=== PATIENT | female | born 1970 | race Caucasian/White ===

== ENCOUNTER 2018-01-04 23:05 | Emergency (ER) | payer MEDICARE, SELFPAY ==
[2018-01-04 23:18] VITALS: BP 157/103; PULSE 73; RESP 16; TEMP 36.4; O2SAT 99; BMI 25.8
--- NOTE | 2018-01-04 23:24 | ED.DIZZY ---
HPI - Dizziness General Chief Complaint: Dizziness Stated Complaint: DIZZINESS,MIGRAINE Time Seen by Provider: 01/04/18 23:23 Source: patient Mode of arrival: ambulatory Limitations: no limitations History of Present Illness HPI Narrative: 47-year-old female with a history of migraines here for which she describes as 1 of her typical migraines. She states that it is bilateral. Has photophobia. No aura. No fevers. No ringing in her ears. She states she takes Excedrin at home and took that but it did not help her symptoms. She states she has a follow-up appointment with her primary doctor sometime in the near future to discuss headache medications. States she woke up this morning with the symptoms and it does feel like 1 of her typical migraines. Related Data Home Medications Medication Instructions Recorded Confirmed Valacyclovir Hydrochloride 1,000 mg PO PRN #0 09/13/10 (Valtrex) Previous Rx's Medication Instructions Recorded zfstpkzfby-gpmnssiefbtdm-qvzd 1 tab PO Q4HP PRN #10 tab 11/07/17 hjuficcpyl-trmjyoogcetgn-hpne 1 cap PO Q4H PRN #14 cap 01/05/18 [Fioricet] Allergies Allergy/AdvReac Type Severity Reaction Status Date / Time diflunisal [DIFLUNISAL] Allergy Unknown Unverified 12/05/17 11:51 hydrocodone [HYDROCODONE] Allergy Unknown Unverified 12/05/17 11:51 methocarbamol [From ROBAXIN] Allergy Unknown Unverified 12/05/17 11:51 naproxen [From NAPROSYN] Allergy Unknown Unverified 12/05/17 11:51 NSAIDS (Non-Steroidal Allergy Unknown Unverified 12/05/17 11:51 Anti-Inflamma [NSAIDS (NON-STEROIDAL ANTI-INFLAMMA] Review of Systems Constitutional Reports body ache(s), Denies chills, Denies fever(s), Reports headache(s), Denies lethargy, Denies malaise and Denies weakness Eyes Denies change in vision, Denies diplopia, Denies loss of vision and Reports photophobia ENT Ears, Nose, Mouth, and Throat: Denies vertigo, Denies dizziness, Reports headache(s), Denies neck pain, Denies tinnitus and Denies sore throat Cardiovascular Denies chest pain, Denies syncope, Denies irregular heart rhythm, Denies lightheadedness, Denies palpitations, Denies dyspnea, Denies dyspnea on exertion and Denies orthopnea Respiratory Denies cough, Denies dyspnea, Denies dyspnea on exertion and Denies wheezing Gastrointestinal Gastrointestinal: Denies abdominal pain, Denies change in bowel habits, Denies diarrhea, Reports nausea and Denies vomiting Musculoskeletal Denies abnormal gait, Reports myalgias, Reports arthralgias, Denies muscle cramps, Denies muscle weakness and Denies neck pain Integumentary/Breasts Denies pruritus, Denies erythema, Denies rash and Denies wounds Neurologic Denies abnormal gait, Denies vertigo, Denies dizziness, Denies syncope, Reports headache(s), Denies loss of vision and Denies weakness Endocrine Denies palpitations Hematologic/Lymphatic Denies easy bruising Allergic/Immunologic Denies wheezing [facility] Social History Smoking Status: Never smoker Exam Const General: cooperative and well developed Nutritional Appearance: well nourished Orientation: alert, awake, oriented x3 and not confused Eyes General: appearance normal, both eyes and all related structures Eyelids: eyelids normal Conjunctivae: conjunctivae normal Sclera: sclerae normal Pupils: PERRL EOM: EOM intact bilaterally Resp Effort & Inspection: normal respiratory effort, able to speak in complete sentences, no respiratory distress and no use of accessory muscles Auscultation: clear to auscultation bilaterally, no rales, no rhonchi and no wheezes Cardio Rate: regular rate Rhythm: regular rhythm Heart Sounds: no click, no gallops, no murmurs and no rubs Pulses: normal peripheral pulses GI Inspection: non-distended Palpation: soft, no hepatosplenomegaly, No guarding, No pulsatile mass and No tender Auscultation: normal bowel sounds Skin General: no rashes or lesions noted, No jaundice and No petechiae Neuro General: alert, oriented x3, gait normal and no focal motor deficits Speech: speech normal Motor: strength 5/5 throughout Sensory Exam: no sensory deficits noted Extrem General: full ROM, no clubbing, cyanosis or edema, no pedal edema and no calf tenderness MDM - Dizziness MDM Narrative Medical decision making narrative: Patient here in the emergency department with a headache that is consistent with 1 of her typical migraines she was given IV medication here in the emergency department she states that her headache went from a 10/10 to a 7/10. She states that she felt improvement enough in her headache that she would like to go home. Will hold on further workup for now. She does have an appointment at the near future with her primary care doctor to discuss her headaches and medication. She states that she has been told that she should not be taken Excedrin because of her history of gastric bypass however she has been taking this medicine because the headaches. She states she has been on Fioricet in the past and she thinks that has worked for her. Will send her home with a prescription for Fioricet. She was given return precautions. She expressed understanding and agreement with plan Course Orders Ordered: ED Orders 01/04/18 23:27 XR pelvis 1-2V Stat XR wrist LT min 3V Stat Discontinued Medications Diphenhydramine HCl (Benadryl) 25 mg IV NOW ONE Stop: 01/04/18 23:56 Last Admin: 01/05/18 00:05 Dose: 25 mg Sodium Chloride (Normal Saline 0.9%) 1,000 mls @ 1,000 mls/hr IV BOLUS ONE Stop: 01/05/18 00:54 Last Infusion: 01/05/18 01:13 Dose: 1,000 mls/hr Admin: 01/05/18 00:05 Dose: 1,000 mls/hr Metoclopramide HCl (Reglan) 10 mg IV NOW ONE Stop: 01/04/18 23:56 Last Admin: 01/05/18 00:05 Dose: 10 mg Last Vital Signs Temp 97.5 F L 01/04/18 23:18 Pulse 61 01/05/18 01:56 Resp 16 01/05/18 01:56 BP 157/96 H 01/05/18 01:56 Pulse Ox 98 01/05/18 01:56 Discharge Plan Departure Patient Disposition: Home, Self-Care Clinical Impression: Migraine Discharge Date/Time: 01/05/18 01:57 Interventions: ED Discharge Assessment Last Done: 01/05/18 01:56 Instructions: Migraine Headaches (Alternative Therapy), Migraine -- Adult Activity Restrictions/Additional Instructions: Take all the medications as directed. Follow up with your primary care doctor at her scheduled appointment to discuss your headaches and potential medications. Return to the emergency department for any new or worsening symptoms. Prescriptions: New cbbybymseb-tlcrtshvitxtb-tslv [Fioricet] 50-300-40 mg capsule 1 cap PO Q4H PRN (Reason: headache) Qty: 14 RF: 0 No Action Valacyclovir Hydrochloride (Valtrex) 1,000 mg PO PRN Qty: 0 RF: 0 jggolopgiy-vuaoounvsjgog-akee 1 EACH tablet 1 tab PO Q4HP PRNQty: 10 RF: 0
[2018-01-05] MEDS: diphenhydrAMINE 50 MG/ML VIAL 25 MG IV (00:05)
[2018-01-05] MEDS: SODIUM CHLORIDE 0.9% 1,000 ML 1000 ML IV (00:05)
[2018-01-05] MEDS: METOCLOPRAMIDE 10 MG/2 ML INJ IV (00:05)
[2018-01-05 01:56] VITALS: BP 157/96; PULSE 61; RESP 16; O2SAT 98
== END 2018-01-05 01:57 | disposition home or self-care (01) ==
PROVIDERS: Emergency Provider Emergency Medicine; Family Provider Family Medicine; PCP Family Medicine
DX: G43.909 Migraine, unspecified, not intractable, without status migrainosus (principal)
CPT/HCPCS: 36591; 93005; 96361; 96374; 96375; 99283; 99284; J1200; J2765

== ENCOUNTER 2018-07-31 16:33 | Emergency (ER) | payer MEDICARE, SELFPAY ==
[2018-07-31 16:52] VITALS: BP 118/84; PULSE 98; RESP 18; TEMP 37.2; O2SAT 97
--- NOTE | 2018-07-31 17:34 | DI.CT.S_ITS ---
PROCEDURE: CT ABDOMEN PELVIS W CON INDICATIONS: AB PAIN hx gastric bypass TECHNIQUE: After the administration of intravenous contrast, 5 mm thick sections acquired from the diaphragm to the symphysis. 5 mm coronal and sagittal reformats were acquired. For radiation dose reduction, the following was used: automated exposure control, adjustment of mA and/or kV according to patient size. COMPARISON: [facility] Ultrasound, US, US PELVIC+TRANSVAG, 07/03/2016, 10:10. CT, PE STUDY (CTA CHEST), 04/01/2007, 17:16. FINDINGS: Image quality: Excellent. ABDOMEN: Lung bases: Lung bases are clear. Heart size is normal. There is a small hiatal hernia. Solid organs: Liver is normal in size and enhancement. Gallbladder contains a fluid/fluid level likely caused by sludge or small gallstones. Biliary system is dilated. Common bile duct measures up to 14 mm. There is mild intrahepatic biliary dilation. Pancreas appears mildly atrophic. Spleen is normal in size and enhancement. No adrenal nodules. Kidneys demonstrate normal size and enhancement, without hydronephrosis. Peritoneum and bowel: There is gastric bypass appeared Bowel loops demonstrate normal wall thickness and caliber. Appendix is normal. A small amount of free fluid is present. No free air. Nodes and vessels: No retroperitoneal or mesenteric adenopathy by size criteria. Aorta and inferior vena cava are normal in size. Miscellaneous: Small umbilical hernia is noted. PELVIS: Genitourinary: Bladder wall thickness is normal. Myomatous uterus. Ovaries are unremarkable. Miscellaneous: No inguinal hernias or adenopathy. Bones: No suspicious bony lesions. No vertebral body compression fractures. Degenerative changes in lumbar spine. IMPRESSION: 1. Post surgical changes related to gastric bypass. No CT evidence for gastric outlet obstruction or small bowel obstruction. 2. There is gallbladder sludge. Intrahepatic and intrahepatic biliary dilation is present. Please correlate with serum bilirubin for biliary obstruction. 3. Small hiatal hernia. 4. Small fat-containing umbilical hernia. 5. A small amount of free fluid is present. No free air. Dictated by: Clifton Bobo M.D. on 07/31/2018 at 19:06 Approved by: Clifton Bobo M.D. on 07/31/2018 at 19:26
[2018-07-31] MEDS: ONDANSETRON 4 MG/2 ML INJ IV (17:58)
[2018-07-31] MEDS: SODIUM CHLORIDE 0.9% 1,000 ML 150 ML IV (17:58)
[2018-07-31] MEDS: MORPHINE 5 MG/ML INJ 4 MG IV (17:58)
[2018-07-31 18:08] LABS: Add Manual Diff / Slide Review NO; Basophils Percent Auto 0.5 % (0-2); Eosinophils Percent Auto 0.1 % (2-4); Hematocrit 39.5 % (36-46); Hemoglobin 13.4 g/dL (12.0-16.0); Lymphocytes Percent Auto 38.8 % (25-40); Mean Corpuscular HGB Conc 33.8 % (30-36); Mean Corpuscular Hemoglobin 31.4 PG (26-34); Monocytes Percent Auto 5.9 % (3-14); Neutrophils Absolute Auto 2500 /uL (3000-5900); Neutrophils Percent Auto 54.7 % (50-75); Platelet Count 202 X10^3/uL (150-400); Red Blood Cell Count 4.25 X10^6/uL (4.0-5.2); Red Cell Distribution Width 17.9 % (11.6-14.8); White Blood Cell Count 4.5 X10^3/uL (4.5-11.0)
[2018-07-31 18:09] VITALS: BP 132/88; PULSE 79; RESP 11; O2SAT 97
[2018-07-31 18:20] LABS: Alanine Aminotransferase 23 IU/L (9-52); Albumin 4.1 g/dL (3.5-5.0); Albumin Globulin Ratio 1.2 (1.0-2.8); Alkaline Phosphatase 89 U/L (38-126); Aspartate Aminotransferase 21 IU/L (14-36); Bilirubin Total 0.4 mg/dL (0.2-1.3); Blood Urea Nitrogen 13 mg/dL (7-17); Calcium 8.7 mg/dL (8.4-10.2); Carbon Dioxide 28 mmol/L (22-32); Chloride 104 mmol/L (98-107); Estimated Glomerular Filt Rate 59.4 mL/min (>60); Globulin 3.3 g/dL (1.7-4.1); Glucose 93 mg/dL (70-100); HEMOLYSIS < 15 (0-50); Lipase 23 U/L (23-300); Potassium 3.8 mmol/L (3.4-5.1); Sodium 143 mmol/L (137-145); Total Protein 7.4 g/dL (6.3-8.2)
--- NOTE | 2018-07-31 18:27 | ED_ITS ---
HPI - Abdominal Pain <Ashley Avery DO - Last Filed: 08/01/18 07:36> General Chief Complaint: Abdominal Pain Stated Complaint: ABDOMINAL PAIN Time Seen by Provider: 07/31/18 17:20 Source: patient Mode of arrival: ambulatory Limitations: no limitations History of Present Illness HPI narrative: The patient is a 48-year-old female who presents with abdominal pain and started last night progressively getting worse. She has a history of gastric bypass. She denies nausea vomiting no fever. She had normal bowel movement. She has no history of small-bowel obstructions. She says that the pain is progressively getting worse. Related Data Home Medications Medication Instructions Recorded Confirmed Valacyclovir Hydrochloride 1,000 mg PO PRN #0 09/13/10 07/31/18 (Valtrex) Previous Rx's Medication Instructions Recorded mdegaxxxgl-qzptpcntjsyqd-awsx 1 tab PO Q4HP PRN #10 tab 11/07/17 glxdmbjtdv-qxcsgzwujvlfu-qyry 1 cap PO Q4H PRN #14 cap 01/05/18 [Fioricet] hydrocodone-acetaminophen [Penitas] 1 tab PO Q4-6H PRN #10 tab 07/31/18 Allergies Allergy/AdvReac Type Severity Reaction Status Date / Time diflunisal [DIFLUNISAL] Allergy Unknown Verified 07/31/18 16:20 hydrocodone [HYDROCODONE] Allergy Unknown Verified 07/31/18 16:20 methocarbamol [From ROBAXIN] Allergy Unknown Verified 07/31/18 16:20 naproxen [From NAPROSYN] Allergy Unknown Verified 07/31/18 16:20 NSAIDS (Non-Steroidal Allergy Unknown Verified 07/31/18 16:20 Anti-Inflamma [NSAIDS (NON-STEROIDAL ANTI-INFLAMMA] Review of Systems <Ashley Avery DO - Last Filed: 08/01/18 07:36> Review of Systems All systems reviewed & are unremarkable except as noted in HPI and below Constitutional Denies chills, Denies fever(s), Denies lethargy and Denies weakness Cardiovascular Denies chest pain, Denies irregular heart rhythm, Denies lightheadedness, Denies palpitations, Denies dyspnea, Denies dyspnea on exertion and Denies orthopnea Respiratory Denies cough, Denies dyspnea, Denies dyspnea on exertion and Denies wheezing Gastrointestinal Gastrointestinal: Reports as per HPI Genitourinary Denies hematuria, Denies flank pain, Denies urinary incontinence and Denies urinary urgency Musculoskeletal Denies back pain, Denies muscle weakness, Denies numbness and Denies tingling Integumentary/Breasts Denies pruritus, Denies erythema, Denies rash and Denies wounds Neurologic Denies numbness, Denies tingling and Denies weakness Endocrine Denies palpitations Allergic/Immunologic Denies wheezing Exam <Ashley Avery DO - Last Filed: 08/01/18 07:36> Initial Vital Signs Initial Vital Signs: Vital Signs Temperature 98.9 F 07/31/18 16:52 Pulse Rate 98 H 07/31/18 16:52 Respiratory Rate 18 07/31/18 16:52 Blood Pressure 118/84 07/31/18 16:52 Pulse Oximetry 97 07/31/18 16:52 GENERAL: Well-appearing, well-nourished and in no acute distress. HEENT: Head atraumatic,EOMI, pupils reactive, CARDIOVASCULAR: Regular rate and rhythm without murmurs, rubs or gallops. RESPIRATORY: Breath sounds equal bilaterally, no wheezes rales or rhonchi. ABDOMEN: Soft, mid abdominal tenderness, multiple scars noted no distension EXTREMITIES: Normal range of motion, no clubbing or edema. Neurovascularly intact NEUROLOGICAL: Alert and oriented x4.Normal gait and speech. Cranial nerves II through XII grossly intact. SKIN: Warm, dry, no laceration, no petechiae, no rashes or lesions. <Hair Ramirez DO - Last Filed: 07/31/18 21:39> Initial Vital Signs Initial Vital Signs: Vital Signs Temperature 98.9 F 07/31/18 16:52 Pulse Rate 98 H 07/31/18 16:52 Respiratory Rate 18 07/31/18 16:52 Blood Pressure 118/84 07/31/18 16:52 Pulse Oximetry 97 07/31/18 16:52 Course <DO Lia Bowen Last Filed: 08/01/18 07:36> Orders Ordered: Discontinued Medications Hydrocodone Bitart/Acetaminophen (Vicodin Prepack) 1 bottle MISC SEEINSTR ONE Stop: 07/31/18 21:37 Last Admin: 07/31/18 21:49 Dose: 1 bottle Sodium Chloride (Normal Saline 0.9%) 1,000 mls @ 150 mls/hr IV CONT BRITTNI Last Infusion: 07/31/18 21:45 Dose: 150 mls/hr Admin: 07/31/18 17:58 Dose: 150 mls/hr Morphine Sulfate (Morphine Sulfate) 4 mg IV NOW ONE Stop: 07/31/18 17:35 Last Admin: 07/31/18 17:58 Dose: 4 mg Morphine Sulfate (Morphine) 4 mg IV NOW ONE Stop: 07/31/18 19:43 Last Admin: 07/31/18 19:47 Dose: 4 mg Ondansetron HCl (Zofran) 4 mg IV NOW ONE Stop: 07/31/18 17:34 Last Admin: 07/31/18 17:58 Dose: 4 mg Vital Signs - 8 hr 07/31/18 16:52 07/31/18 18:09 07/31/18 19:30 Temperature 98.9 F Pulse Rate 98 H 79 Respiratory Rate 18 11 L Blood Pressure 118/84 Blood Pressure [Left Arm] 132/88 119/93 H Pulse Oximetry 97 97 07/31/18 20:30 Temperature Pulse Rate Respiratory Rate Blood Pressure Blood Pressure [Left Arm] 134/90 Pulse Oximetry <Hair Ramirez, DO - Last Filed: 07/31/18 21:39> Orders Ordered: Discontinued Medications Hydrocodone Bitart/Acetaminophen (Vicodin Prepack) 1 bottle MISC SEEINSTR ONE Stop: 07/31/18 21:37 Last Admin: 07/31/18 21:49 Dose: 1 bottle Sodium Chloride (Normal Saline 0.9%) 1,000 mls @ 150 mls/hr IV CONT [facility] Last Infusion: 07/31/18 21:45 Dose: 150 mls/hr Admin: 07/31/18 17:58 Dose: 150 mls/hr Morphine Sulfate (Morphine Sulfate) 4 mg IV NOW ONE Stop: 07/31/18 17:35 Last Admin: 07/31/18 17:58 Dose: 4 mg Morphine Sulfate (Morphine) 4 mg IV NOW ONE Stop: 07/31/18 19:43 Last Admin: 07/31/18 19:47 Dose: 4 mg Ondansetron HCl (Zofran) 4 mg IV NOW ONE Stop: 07/31/18 17:34 Last Admin: 07/31/18 17:58 Dose: 4 mg Vital Signs - 8 hr 07/31/18 16:52 07/31/18 18:09 07/31/18 19:30 Temperature 98.9 F Pulse Rate 98 H 79 Respiratory Rate 18 11 L Blood Pressure 118/84 Blood Pressure [Left Arm] 132/88 119/93 H Pulse Oximetry 97 97 07/31/18 20:30 Temperature Pulse Rate Respiratory Rate Blood Pressure Blood Pressure [Left Arm] 134/90 Pulse Oximetry MDM - Abdominal Pain <Ashley Avery DO - Last Filed: 08/01/18 07:36> Lab Data Attestation: I reviewed the patient's lab results. Result diagrams: 07/31/18 17:55 07/31/18 17:55 Lab Results 07/31/18 07/31/18 Range/Units 17:55 17:55 WBC 4.5 (4.5-11.0) X10^3/uL RBC 4.25 (4.0-5.2) X10^6/uL Hgb 13.4 (12.0-16.0) g/dL Hct 39.5 (36-46) % MCV 93.0 (80-100) fL MCH 31.4 (26-34) PG MCHC 33.8 (30-36) % RDW 17.9 H (11.6-14.8) % Plt Count 202 (150-400) X10^3/uL Neut % (Auto) 54.7 (50-75) % Lymph % (Auto) 38.8 (25-40) % [place] % (Auto) 5.9 (3-14) % Eos % (Auto) 0.1 L (2-4) % Baso % (Auto) 0.5 (0-2) % Neut # (Auto) 2500 L (5121-5944) /uL Sodium 143 (137-145) mmol/L Potassium 3.8 (3.4-5.1) mmol/L Chloride 104 (98-107) mmol/L Carbon Dioxide 28 (22-32) mmol/L BUN 13 (7-17) mg/dL Creatinine 1.00 (0.52-1.04) mg/dL Estimated GFR 59.4 L (>60) mL/min BUN/Creatinine Ratio 13.0 (6-22) Glucose 93 (70-100) mg/dL Calcium 8.7 (8.4-10.2) mg/dL Total Bilirubin 0.4 (0.2-1.3) mg/dL AST 21 (14-36) IU/L ALT 23 (9-52) IU/L Alkaline Phosphatase 89 (38-126) U/L Total Protein 7.4 (6.3-8.2) g/dL Albumin 4.1 (3.5-5.0) g/dL Globulin 3.3 (1.7-4.1) g/dL Albumin/Globulin Ratio 1.2 (1.0-2.8) Lipase 23 (23-300) U/L Point of care testing: Point of Care Testing Test Results Negative Urine Dip Bedside Urine Glucose Negative Bedside Urine Bilirubin - Negative Bedside Urine Ketone - Negative Urine Specific [place] 1.010 Bedside Urine Occult Blood - Negative Bedside Urine pH 6.0 Bedside Urine Protein - Negative Bedside Urine Urobilinogen - Negative Bedside Urine Nitrite - Negative Bedside Urine Leukocytes - Negative Esterase MDM Narrative Medical decision making narrative: CT pending: Signed out to Dr. Ramirez. <Hair Ramirez DO - Last Filed: 07/31/18 21:39> Lab Data Lab Results 07/31/18 07/31/18 Range/Units 17:55 17:55 WBC 4.5 (4.5-11.0) X10^3/uL RBC 4.25 (4.0-5.2) X10^6/uL Hgb 13.4 (12.0-16.0) g/dL Hct 39.5 (36-46) % MCV 93.0 (80-100) fL MCH 31.4 (26-34) PG MCHC 33.8 (30-36) % RDW 17.9 H (11.6-14.8) % Plt Count 202 (150-400) X10^3/uL Neut % (Auto) 54.7 (50-75) % Lymph % (Auto) 38.8 (25-40) % [place] % (Auto) 5.9 (3-14) % Eos % (Auto) 0.1 L (2-4) % Baso % (Auto) 0.5 (0-2) % Neut # (Auto) 2500 L (9914-2971) /uL Sodium 143 (137-145) mmol/L Potassium 3.8 (3.4-5.1) mmol/L Chloride 104 (98-107) mmol/L Carbon Dioxide 28 (22-32) mmol/L BUN 13 (7-17) mg/dL Creatinine 1.00 (0.52-1.04) mg/dL Estimated GFR 59.4 L (>60) mL/min BUN/Creatinine Ratio 13.0 (6-22) Glucose 93 (70-100) mg/dL Calcium 8.7 (8.4-10.2) mg/dL Total Bilirubin 0.4 (0.2-1.3) mg/dL AST 21 (14-36) IU/L ALT 23 (9-52) IU/L Alkaline Phosphatase 89 (38-126) U/L Total Protein 7.4 (6.3-8.2) g/dL Albumin 4.1 (3.5-5.0) g/dL Globulin 3.3 (1.7-4.1) g/dL Albumin/Globulin Ratio 1.2 (1.0-2.8) Lipase 23 (23-300) U/L Point of care testing: Point of Care Testing Test Results Negative Urine Dip Bedside Urine Glucose Negative Bedside Urine Bilirubin - Negative Bedside Urine Ketone - Negative Urine Specific [place] 1.010 Bedside Urine Occult Blood - Negative Bedside Urine pH 6.0 Bedside Urine Protein - Negative Bedside Urine Urobilinogen - Negative Bedside Urine Nitrite - Negative Bedside Urine Leukocytes - Negative Esterase Imaging Data CT scan - abdomen: Radiologist's impression: PROCEDURE: CT ABDOMEN PELVIS W CON INDICATIONS: AB PAIN hx gastric bypass TECHNIQUE: After the administration of intravenous contrast, 5 mm thick sections acquired from the diaphragm to the symphysis. 5 mm coronal and sagittal reformats were acquired. For radiation dose reduction, the following was used: automated exposure control, adjustment of mA and/or kV according to patient size. COMPARISON: [facility] Ultrasound, US, US PELVIC+TRANSVAG, 2015, 10:10. CT, PE STUDY (CTA CHEST), 04/01/2007, 17:16. FINDINGS: Image quality: Excellent. ABDOMEN: Lung bases: Lung bases are clear. Heart size is normal. There is a small hiatal hernia. Solid organs: Liver is normal in size and enhancement. Gallbladder contains a fluid/fluid level likely caused by sludge or small gallstones. Biliary system is dilated. Common bile duct measures up to 14 mm. There is mild intrahepatic biliary dilation. Pancreas appears mildly atrophic. Spleen is normal in size and enhancement. No adrenal nodules. Kidneys demonstrate normal size and enhancement, without hydronephrosis. Peritoneum and bowel: There is gastric bypass appeared Bowel loops demonstrate normal wall thickness and caliber. Appendix is normal. A small amount of free fluid is present. No free air. Nodes and vessels: No retroperitoneal or mesenteric adenopathy by size criteria. Aorta and inferior vena cava are normal in size. Miscellaneous: Small umbilical hernia is noted. PELVIS: Genitourinary: Bladder wall thickness is normal. Myomatous uterus. Ovaries are unremarkable. Miscellaneous: No inguinal hernias or adenopathy. Bones: No suspicious bony lesions. No vertebral body compression fractures. Degenerative changes in lumbar spine. IMPRESSION: 1. Post surgical changes related to gastric bypass. No CT evidence for gastric outlet obstruction or small bowel obstruction. 2. There is gallbladder sludge. Intrahepatic and intrahepatic biliary dilation is present. Please correlate with serum bilirubin for biliary obstruction. 3. Small hiatal hernia. 4. Small fat-containing umbilical hernia. 5. A small amount of free fluid is present. No free air. Dictated by: Clifton Bobo M.D. on 07/31/2018 at 19:06 Approved by: Clifton Bobo M.D. on 07/31/2018 at 19:26 US - abdomen: Radiologist's impression: [place] [address] Ultrasound Report Signed Patient: Roma Bowen LMR#: [id number] : 1970Acct:[id number] Age/Sex: 48 / FDate of Service: 07/31/18 Loc: ED Accession Number: [id number] Procedure: US abdomen complete Ordering Provider: Hair Ramirez D.O. PROCEDURE: US ABDOMEN COMPLETE INDICATIONS: RIGHT UPPER QUADRANT PAIN TECHNIQUE: Real-time scanning was performed of the abdominal and retroperitoneal organs, with image documentation. COMPARISON: None. FINDINGS: Liver: Liver is normal in size and demonstrates increased echotexture. Gallbladder: Small non-mobile stones are seen in the gallbladder. The gallbladder wall thickness is normal. No pericholecystic fluid collection. The sonographic Arora 's sign is positive. Biliary ducts: Intrahepatic bile ducts are non-dilated. Extrahepatic bile duct caliber measures 1.4 mm. Normal is 6-7 mm or less in diameter, or 10 mm or less post-cholecystectomy. Pancreas: Obscured by overlying bowel gas. Spleen: Spleen is normal in size and homogeneous in echotexture. Kidneys: Kidneys are normal in size and echotexture. Right kidney measures 9.8 cm long; left kidney measures 9.8 cm long. No hydronephrosis or nephrolithiasis. No solid masses. Aorta: Visualized aorta is normal in caliber at less than 3 cm. Iliacs: Proximal common iliac arteries are normal in caliber at less than 2.5 cm. IVC: Intrahepatic inferior vena cava is patent. Miscellaneous: No free abdominal fluid. IMPRESSION: 1. Cholelithiasis with no mobile stones within the dependent gallbladder lumen. There is positive sonographic Arora's sign. No gallbladder wall thickening or pericholecystic fluid collection. Recommend clinical correlation for early acute cholecystitis. 2. Diffusely increased hepatic echotexture. This finding is most likely secondary to hepatic fatty infiltration although other hepatocellular disease may have a similar appearance. Recommend clinical correlation. Dictated by: Clifton Bobo M.D. on 07/31/2018 at 21:15 Approved by: Clifton Bobo M.D. on 07/31/2018 at 21:18 MDM Narrative Medical decision making narrative: received turned over from day provider pending CT scan results. I reviewed the patient's history and physical and labs. CT scan shows no signs of obstructions or internal hernias. It does show gallbladder sludge. The patient does not have a specific Arora sign on exam however does have epigastric pain. A right upper quadrant ultrasound was ordered which did show gallbladder disease however no fluid or gallbladder wall thickening. Patient has normal LFTs and normal lipase. I do not feel that she needs emergent surgical consultation based on this. We did discuss this with the patient. She does have a follow-up with her operative bariatric surgeon on the of this month. Will send home with a short course of pain medication. She was instructed she needed to contact her surgeon tomorrow to discuss this. She was given return precautions. She expressed understanding and agreement with plan. Discharge Plan Departure Patient Disposition: Home Clinical Impression: Cholelithiasis, Abdominal pain Discharge Date/Time: 07/31/18 21:45 Interventions: ED Discharge Assessment Last Done: 07/31/18 21:45 Instructions: Gallstones (Alternative Therapy), DI for Gallstones, DI for Abdominal Pain-Adult Prescriptions: New hydrocodone-acetaminophen [Penitas] 5-325 mg tablet 1 tab PO Q4-6H PRN (Reason: pain) Qty: 10 RF: 0 No Action Valacyclovir Hydrochloride (Valtrex) 1,000 mg PO PRN Qty: 0 RF: 0 gklvvrnswt-yeydlsunrtvwe-qkzs 1 EACH tablet 1 tab PO Q4HP PRNQty: 10 RF: 0 wxxasaicll-kluucclivpmme-layu [Fioricet] 50-300-40 mg capsule 1 cap PO Q4H PRN (Reason: headache) Qty: 14 RF: 0
[2018-07-31 19:30] VITALS: BP 119/93
--- NOTE | 2018-07-31 19:42 | DI.US.S_ITS ---
PROCEDURE: US ABDOMEN COMPLETE INDICATIONS: RIGHT UPPER QUADRANT PAIN TECHNIQUE: Real-time scanning was performed of the abdominal and retroperitoneal organs, with image documentation. COMPARISON: None. FINDINGS: Liver: Liver is normal in size and demonstrates increased echotexture. Gallbladder: Small non-mobile stones are seen in the gallbladder. The gallbladder wall thickness is normal. No pericholecystic fluid collection. The sonographic Arora's sign is positive. Biliary ducts: Intrahepatic bile ducts are non-dilated. Extrahepatic bile duct caliber measures 1.4 mm. Normal is 6-7 mm or less in diameter, or 10 mm or less post-cholecystectomy. Pancreas: Obscured by overlying bowel gas. Spleen: Spleen is normal in size and homogeneous in echotexture. Kidneys: Kidneys are normal in size and echotexture. Right kidney measures 9.8 cm long; left kidney measures 9.8 cm long. No hydronephrosis or nephrolithiasis. No solid masses. Aorta: Visualized aorta is normal in caliber at less than 3 cm. Iliacs: Proximal common iliac arteries are normal in caliber at less than 2.5 cm. IVC: Intrahepatic inferior vena cava is patent. Miscellaneous: No free abdominal fluid. IMPRESSION: 1. Cholelithiasis with no mobile stones within the dependent gallbladder lumen. There is positive sonographic Arora's sign. No gallbladder wall thickening or pericholecystic fluid collection. Recommend clinical correlation for early acute cholecystitis. 2. Diffusely increased hepatic echotexture. This finding is most likely secondary to hepatic fatty infiltration although other hepatocellular disease may have a similar appearance. Recommend clinical correlation. Dictated by: Clifton Bobo M.D. on 07/31/2018 at 21:15 Approved by: Clifton Bobo M.D. on 07/31/2018 at 21:18
[2018-07-31] MEDS: MORPHINE 4 MG/ML INJ IV (19:47)
[2018-07-31 20:30] VITALS: BP 134/90
[2018-07-31 21:45] VITALS: BP 120/30; PULSE 74; RESP 15; O2SAT 100
[2018-07-31] MEDS: HYDROCODONE/ACET 5/325 PREPACK 1 BOTTLE MISC (21:49)
== END 2018-07-31 21:45 | disposition home or self-care (01) ==
PROVIDERS: Emergency Medicine; Emergency Provider Emergency Medicine; Family Provider Family Medicine; PCP Family Medicine
DX: K80.20 Calculus of gallbladder without cholecystitis without obstruction (principal)
CPT/HCPCS: 36591; 74177; 76700; 80053; 81003; 81025; 83690; 85025; 96361; 96374; 96375; 96376; 99283; 99285; J2270; J2405; Q9967

== ENCOUNTER 2018-08-01 19:11 | Emergency (ER) | payer MEDICARE, SELFPAY ==
[2018-08-01 19:29] VITALS: BP 129/88; PULSE 79; RESP 15; TEMP 36.6; O2SAT 98; BMI 30.5
--- NOTE | 2018-08-01 19:48 | ED_ITS ---
HPI - Abdominal Pain General Chief Complaint: Abdominal Pain Stated Complaint: ABDOMINAL PAIN Time Seen by Provider: 08/01/18 19:48 Source: patient Mode of arrival: ambulatory Limitations: no limitations History of Present Illness HPI narrative: 48-year-old female who was seen here in the emergency department yesterday for abdominal pain. 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 She had a CT scan performed yesterday which showed no signs of obstruction or internal hernias. It did show that she had gallbladder pathology. Right upper quadrant ultrasound was ordered which confirmed gallbladder with a pathology but no discrete signs of acute cholecystitis. She had normal liver function tests and normal lipase. She was discharged home with pain medication. She contacted her operative surgeon today however has a follow-up in several weeks. She returns this evening for continued pain. Related Data Home Medications Medication Instructions Recorded Confirmed Valacyclovir Hydrochloride 1,000 mg PO PRN #0 09/13/10 07/31/18 (Valtrex) Previous Rx's Medication Instructions Recorded phpmefewzy-wrhfjbaovucqr-jrxw 1 tab PO Q4HP PRN #10 tab 11/07/17 gvtkczzvbc-juttjhhxsciqd-izab 1 cap PO Q4H PRN #14 cap 01/05/18 [Fioricet] hydrocodone-acetaminophen [[place]] 1 tab PO Q4-6H PRN #10 tab 07/31/18 hydrocodone-acetaminophen [[place]] 1 tab PO Q4-6H PRN #14 tab 08/01/18 Allergies Allergy/AdvReac Type Severity Reaction Status Date / Time diflunisal [DIFLUNISAL] Allergy Unknown Verified 07/31/18 16:20 hydrocodone [HYDROCODONE] Allergy Unknown Verified 07/31/18 16:20 methocarbamol [From ROBAXIN] Allergy Unknown Verified 07/31/18 16:20 naproxen [From NAPROSYN] Allergy Unknown Verified 07/31/18 16:20 NSAIDS (Non-Steroidal Allergy Unknown Verified 07/31/18 16:20 Anti-Inflamma [NSAIDS (NON-STEROIDAL ANTI-INFLAMMA] Review of Systems Constitutional Denies fever(s) and Denies headache(s) Eyes Denies change in vision ENT Ears, Nose, Mouth, and Throat: Denies headache(s) Cardiovascular Denies chest pain and Denies dyspnea Respiratory Denies dyspnea Gastrointestinal Gastrointestinal: Reports abdominal pain and Denies change in bowel habits Genitourinary Denies dysuria Musculoskeletal Denies myalgias and Denies arthralgias Integumentary/Breasts Denies rash Neurologic Denies behavioral changes and Denies headache(s) Psychiatric Denies behavioral changes Hematologic/Lymphatic Comments: Not on anticoagulation PFSH Medical History Migraines (Acute) Obesity (Acute) Surgical History History of abdominoplasty (Acute) Status post gastric bypass for obesity (Acute) Social History Smoking Status: Never smoker Exam Initial Vital Signs Initial Vital Signs: Vital Signs Temperature 97.8 F 08/01/18 19:29 Pulse Rate 79 08/01/18 19:29 Respiratory Rate 15 08/01/18 19:29 Blood Pressure 129/88 08/01/18 19:29 Pulse Oximetry 98 08/01/18 19:29 Const General: cooperative, healthy appearing, comfortable, well developed, well groomed and No acute distress Orientation: alert, awake and oriented x3 HENMT Head: normal to inspection and normocephalic Eyes General: appearance normal, both eyes and all related structures Resp Effort & Inspection: normal respiratory effort Auscultation: clear to auscultation bilaterally Cardio Rate: regular rate Rhythm: regular rhythm GI Inspection: non-distended Palpation: soft, No firm, No guarding, No rigid and tender ( epigastric right upper quadrant without rebound) Skin Lesions: no lesions Rashes: no rashes Neuro General: alert, awake and oriented x3 Extrem General: normal to inspection and capillary refill normal Psych Appearance: grossly normal and well kempt Course Orders Ordered: ED Orders 08/01/18 20:22 Complete Blood Count AUTO DIFF Stat Comprehensive Metabolic Panel Stat Lipase Stat 08/01/18 20:38 Lactate (Lactic Acid) Stat Discontinued Medications Morphine Sulfate (Morphine Sulfate) 4 mg IV NOW ONE Stop: 08/01/18 20:06 Last Admin: 08/01/18 20:25 Dose: 4 mg Vital Signs - 8 hr 08/01/18 19:29 08/01/18 20:35 08/01/18 21:51 Temperature 97.8 F 97.8 F Pulse Rate 79 79 71 Respiratory Rate 15 15 17 Blood Pressure 129/88 129/88 128/81 Pulse Oximetry 98 98 97 MDM - Abdominal Pain Lab Data Attestation: I reviewed the patient's lab results. Result diagrams: 08/01/18 20:22 08/01/18 20:22 Lab Results 08/01/18 08/01/18 08/01/18 Range/Units 20:22 20:22 20:38 WBC 4.4 L (4.5-11.0) X10^3/uL RBC 4.11 (4.0-5.2) X10^6/uL Hgb 12.9 (12.0-16.0) g/dL Hct 38.5 (36-46) % MCV 93.7 (80-100) fL MCH 31.5 (26-34) PG MCHC 33.6 (30-36) % RDW 18.0 H (11.6-14.8) % Plt Count 203 (150-400) X10^3/uL Neut % (Auto) 39.8 L (50-75) % Lymph % (Auto) 50.6 H (25-40) % Vernon % (Auto) 8.2 (3-14) % Eos % (Auto) 0.8 L (2-4) % Baso % (Auto) 0.6 (0-2) % Neut # (Auto) 1700 L (9155-2776) /uL Sodium 142 (137-145) mmol/L Potassium 3.6 (3.4-5.1) mmol/L Chloride 102 (98-107) mmol/L Carbon Dioxide 29 (22-32) mmol/L BUN 14 (7-17) mg/dL Creatinine 0.90 (0.52-1.04) mg/dL Estimated GFR > 60.0 (>60) mL/min BUN/Creatinine Ratio 15.6 (6-22) Glucose 84 (70-100) mg/dL Lactate 0.6 L (0.7-2.1) mmol/L Calcium 8.5 (8.4-10.2) mg/dL Total Bilirubin 0.4 (0.2-1.3) mg/dL AST 21 (14-36) IU/L ALT 21 (9-52) IU/L Alkaline Phosphatase 83 (38-126) U/L Total Protein 7.4 (6.3-8.2) g/dL Albumin 4.3 (3.5-5.0) g/dL Globulin 3.1 (1.7-4.1) g/dL Albumin/Globulin Ratio 1.4 (1.0-2.8) Lipase 23 (23-300) U/L MDM Narrative Medical decision making narrative: patient's labs today unchanged from yesterday. She has known gallbladder pathology per the workup yesterday. She does have right upper quadrant pain. No fevers. Does not have an elevated white blood cell count. LFTs unremarkable. Lipase unremarkable. Lactate also unremarkable. She does not have a acute abdomen. I did not repeat the radiologic studies today. I discussed the case with Dr. Jim Willett who is on-call for General surgery at [facility] which is where her surgeon is located. They agree that her symptoms are most likely related to the gallbladder. Plan was set in place for the patient to be discharged here from the emergency department with pain medications. She is to call the surgery clinic tomorrow where they will see her in outpatient setting for continued evaluation and treatment. I discussed this with the patient. She was very reasonable and agreement with this plan. She was given return precautions. Discharge Plan Departure Patient Disposition: Home Clinical Impression: Abdominal pain Discharge Date/Time: 08/01/18 21:53 Interventions: ED Discharge Assessment Last Done: 08/01/18 21:51 Instructions: DI for Abdominal Pain-Adult Activity Restrictions/Additional Instructions: I discussed her case with Dr. Willett this evening. They would like you to call Dr. steiner office tomorrow for a follow-up. I do suspect that your abdominal pain is caused by her gallbladder. continue to take her medications as directed. Return to the emergency department for any new symptoms. Prescriptions: New hydrocodone-acetaminophen [[place]] 5-325 mg tablet 1 tab PO Q4-6H PRN (Reason: pain) Qty: 14 RF: 0 No Action Valacyclovir Hydrochloride (Valtrex) 1,000 mg PO PRN Qty: 0 RF: 0 ntfqxfvbpw-ewlayzoxehjup-ouok 1 EACH tablet 1 tab PO Q4HP PRNQty: 10 RF: 0 tdvauwggaz-issmpwqlpsaqz-jshu [Fioricet] 50-300-40 mg capsule 1 cap PO Q4H PRN (Reason: headache) Qty: 14 RF: 0 hydrocodone-acetaminophen [[place]] 5-325 mg tablet 1 tab PO Q4-6H PRN (Reason: pain) Qty: 10 RF: 0
[2018-08-01] MEDS: MORPHINE 5 MG/ML INJ 4 MG IV (20:25)
[2018-08-01 20:35] VITALS: BP 129/88; PULSE 79; RESP 15; TEMP 36.6; O2SAT 98; BMI 30.5
[2018-08-01 20:41] LABS: Add Manual Diff / Slide Review NO; Basophils Percent Auto 0.6 % (0-2); Eosinophils Percent Auto 0.8 % (2-4); Hematocrit 38.5 % (36-46); Hemoglobin 12.9 g/dL (12.0-16.0); Lymphocytes Percent Auto 50.6 % (25-40); Mean Corpuscular HGB Conc 33.6 % (30-36); Mean Corpuscular Hemoglobin 31.5 PG (26-34); Mean Corpuscular Volume 93.7 fL (80-100); Monocytes Percent Auto 8.2 % (3-14); Neutrophils Absolute Auto 1700 /uL (3000-5900); Neutrophils Percent Auto 39.8 % (50-75); Platelet Count 203 X10^3/uL (150-400); Red Blood Cell Count 4.11 X10^6/uL (4.0-5.2); White Blood Cell Count 4.4 X10^3/uL (4.5-11.0)
[2018-08-01 21:03] LABS: Alanine Aminotransferase 21 IU/L (9-52); Albumin 4.3 g/dL (3.5-5.0); Albumin Globulin Ratio 1.4 (1.0-2.8); Alkaline Phosphatase 83 U/L (38-126); Aspartate Aminotransferase 21 IU/L (14-36); BUN Creatinine Ratio 15.6 (6-22); Bilirubin Total 0.4 mg/dL (0.2-1.3); Blood Urea Nitrogen 14 mg/dL (7-17); Calcium 8.5 mg/dL (8.4-10.2); Carbon Dioxide 29 mmol/L (22-32); Chloride 102 mmol/L (98-107); Estimated Glomerular Filt Rate > 60.0 mL/min (>60); Globulin 3.1 g/dL (1.7-4.1); Glucose 84 mg/dL (70-100); HEMOLYSIS < 15 (0-50); Lipase 23 U/L (23-300); Potassium 3.6 mmol/L (3.4-5.1); Sodium 142 mmol/L (137-145); Total Protein 7.4 g/dL (6.3-8.2)
[2018-08-01 21:23] LABS: Lactate (Lactic Acid) 0.6 mmol/L (0.7-2.1)
[2018-08-01 21:51] VITALS: BP 128/81; PULSE 71; RESP 17; O2SAT 97
== END 2018-08-01 21:53 | disposition home or self-care (01) ==
PROVIDERS: Emergency Provider Emergency Medicine; Family Provider Family Medicine; PCP Family Medicine
DX: R10.9 Unspecified abdominal pain (principal)
CPT/HCPCS: 80053; 83605; 83690; 85025; 96374; 99282; 99284; J2270

== ENCOUNTER 2018-08-06 23:38 | Emergency (ER) | payer MEDICARE, MEDICAID, SELFPAY ==
[2018-08-07 00:02] VITALS: BP 120/80; PULSE 88; RESP 18; TEMP 36.2; O2SAT 98; BMI 30.5
[2018-08-07 01:10] LABS: Add Manual Diff / Slide Review NO; Basophils Percent Auto 0.7 % (0-2); Eosinophils Percent Auto 1.1 % (2-4); Hematocrit 37.1 % (36-46); Hemoglobin 12.7 g/dL (12.0-16.0); Lymphocytes Percent Auto 51.1 % (25-40); Mean Corpuscular HGB Conc 34.3 % (30-36); Mean Corpuscular Hemoglobin 31.8 PG (26-34); Mean Corpuscular Volume 92.8 fL (80-100); Monocytes Percent Auto 7.8 % (3-14); Neutrophils Absolute Auto 1600 /uL (3000-5900); Neutrophils Percent Auto 39.3 % (50-75); Platelet Count 180 X10^3/uL (150-400); Red Cell Distribution Width 18.3 % (11.6-14.8)
--- NOTE | 2018-08-07 01:12 | DI.US.S_ITS ---
PROCEDURE: US ABDOMEN LIMITED INDICATIONS: PAIN; KNOWN GALLSTONES TECHNIQUE: Real-time focused scanning was performed of the abdomen, with image documentation. COMPARISON: [facility], US, US ABDOMEN COMPLETE, 07/31/2018, 20:11. [facility], CT, CT ABDOMEN PELVIS W CON, 07/31/2018, 18:25. FINDINGS: Multiple small gallstones noted in the gallbladder lumen. Gallbladder wall is thickened to 4.3 mm. Positive sonographic Arora sign noted. Common bile duct measures 1.2 cm. Pancreas is obscured by bowel gas and cannot be evaluated. IMPRESSION: 1. Cholelithiasis with gallbladder wall thickening and positive sonographic Arora sign concerning for acute cholecystitis. 2. Dilated common bile duct. MRCP could be performed for further evaluation if clinically indicated. Dictated by: Cara Dixon MD, PhD on 08/07/2018 at 9:42 Approved by: Cara Dixon MD, PhD on 08/07/2018 at 9:44
[2018-08-07 01:17] LABS: Alanine Aminotransferase 15 IU/L (9-52); Albumin 3.6 g/dL (3.5-5.0); Albumin Globulin Ratio 1.2 (1.0-2.8); Alkaline Phosphatase 83 U/L (38-126); Aspartate Aminotransferase 16 IU/L (14-36); BUN Creatinine Ratio 18.3 (6-22); Bilirubin Total 0.2 mg/dL (0.2-1.3); Blood Urea Nitrogen 11 mg/dL (7-17); Calcium 8.5 mg/dL (8.4-10.2); Carbon Dioxide 25 mmol/L (22-32); Chloride 106 mmol/L (98-107); Estimated Glomerular Filt Rate > 60.0 mL/min (>60); Glucose 101 mg/dL (70-100); HEMOLYSIS < 15 (0-50); Lipase 25 U/L (23-300); Potassium 3.4 mmol/L (3.4-5.1); Sodium 142 mmol/L (137-145); Total Protein 6.6 g/dL (6.3-8.2)
[2018-08-07] MEDS: MORPHINE 4 MG/ML INJ IV (01:21)
[2018-08-07 01:24] VITALS: BP 122/90; PULSE 74; RESP 18; TEMP 36.6; O2SAT 96
--- NOTE | 2018-08-07 01:37 | ED.ABDPAIN ---
HPI - Abdominal Pain General Chief Complaint: Abdominal Pain Stated Complaint: abdominal pain thinks gall bladder Time Seen by Provider: 08/07/18 00:24 Source: patient and old records reviewed Mode of arrival: ambulatory Limitations: no limitations History of Present Illness HPI narrative: This is a 48-year-old who returns with abdominal pain. Patient was seen here several times before for similar symptoms. Patient has had right upper quadrant pain that radiates around to the back she denies any fevers that are documented but has low or she denies any shortness of breath or chest pain. She has been nauseated, she denies vomiting. She is not having any diarrhea or constipation. She has not had any urinary symptoms. Patient states that the pain wraps around the right side. Patient has a follow-up appointment on August 14 with her general surgeon who did her hernia repair as well as abdominal plasty. She also has a history significant for Geremias-en-Y bypass. Patient states that she is following up because of her gallbladder and has been told it is a bad gallbladder Related Data Home Medications Medication Instructions Recorded Confirmed Valacyclovir Hydrochloride 1,000 mg PO PRN #0 09/13/10 07/31/18 (Valtrex) Previous Rx's Medication Instructions Recorded bqxwriukap-rwmulrfizuvox-fabk 1 tab PO Q4HP PRN #10 tab 11/07/17 ssdqdgzlqx-qusovmszjworp-mbrr 1 cap PO Q4H PRN #14 cap 01/05/18 [Fioricet] hydrocodone-acetaminophen [[place]] 1 tab PO Q4-6H PRN #10 tab 07/31/18 hydrocodone-acetaminophen [[place]] 1 tab PO Q4-6H PRN #14 tab 08/01/18 hydrocodone-acetaminophen [[place]] 1 tab PO Q4-6H PRN #14 tab 08/07/18 ondansetron HCl [Zofran] 4 mg PO QID PRN #10 tab 08/07/18 Allergies Allergy/AdvReac Type Severity Reaction Status Date / Time diflunisal [DIFLUNISAL] Allergy Unknown Verified 07/31/18 16:20 methocarbamol [From ROBAXIN] Allergy Unknown Verified 07/31/18 16:20 naproxen [From NAPROSYN] Allergy Unknown Verified 07/31/18 16:20 NSAIDS (Non-Steroidal Allergy Unknown Verified 07/31/18 16:20 Anti-Inflamma [NSAIDS (NON-STEROIDAL ANTI-INFLAMMA] Review of Systems Review of Systems All systems reviewed & are unremarkable except as noted in HPI and below Constitutional Denies chills, Denies fever(s), Denies increased appetite, Denies lethargy and Denies weakness Cardiovascular Denies chest pain, Denies irregular heart rhythm, Denies lightheadedness, Denies palpitations, Denies dyspnea and Denies orthopnea Respiratory Denies cough, Denies dyspnea and Denies wheezing Gastrointestinal Gastrointestinal: Reports abdominal pain, Denies change in bowel habits, Denies constipation, Denies fecal incontinence, Denies diarrhea, Denies nausea and Denies vomiting Genitourinary Denies hematuria, Denies urinary frequency, Denies dysuria and Denies flank pain Neurologic Denies weakness Endocrine Denies palpitations Allergic/Immunologic Denies wheezing [facility] Medical History Migraines (Acute) Obesity (Acute) Surgical History History of abdominoplasty (Acute) Status post gastric bypass for obesity (Acute) Social History Smoking Status: Never smoker Exam Narrative Exam Narrative: GENERAL: Alert and oriented x three, well-nourished, well-appearing female in mild distress HEENT: Head normocephalic, atraumatic, EOMI, pupils reactive, face symmetric, moist mucous membranes NECK: Supple, full range of motion CARDIOVASCULAR: Regular rate and rhythm without murmurs, rubs or gallops. RESPIRATORY: Breath sounds equal bilaterally, no wheezes rales or rhonchi. ABDOMEN: Soft, mild right lower quadrant and epigastric tenderness. Normoactive bowel sounds all 4 quadrants. No guarding or reboress.und, rigidity, no mass : No CVA tenderness EXTREMITIES: Normal range of motion, no clubbing or edema. Neurovascularly intact NEUROLOGICAL: Cranial nerves II through XII grossly intact. Moving all extremities SKIN: Warm, dry, no petechiae, no rashes or lesions. Initial Vital Signs Initial Vital Signs: Vital Signs Temperature 97.1 F L 08/07/18 00:02 Pulse Rate 88 08/07/18 00:02 Respiratory Rate 18 08/07/18 00:02 Blood Pressure 120/80 08/07/18 00:02 Pulse Oximetry 98 08/07/18 00:02 Course Orders Ordered: ED Orders 08/07/18 01:00 Complete Blood Count AUTO DIFF Stat Comprehensive Metabolic Panel Stat Lipase Stat 08/07/18 01:12 US abdomen limited Stat Discontinued Medications Hydrocodone Bitart/Acetaminophen ([place] 5/325) 2 tab PO NOW ONE Stop: 08/07/18 02:40 Last Admin: 08/07/18 02:44 Dose: 2 tab Morphine Sulfate (Morphine) 4 mg IV NOW ONE Stop: 08/07/18 01:14 Last Admin: 08/07/18 01:21 Dose: 4 mg Vital Signs - 8 hr 08/07/18 00:02 08/07/18 01:24 08/07/18 02:43 Temperature 97.1 F L 97.9 F 98.0 F Pulse Rate 88 74 73 Respiratory Rate 18 18 16 Blood Pressure 120/80 Blood Pressure [Left Arm] 122/90 135/85 Pulse Oximetry 98 96 97 MDM - Abdominal Pain Lab Data Attestation: I reviewed the patient's lab results. Result diagrams: 08/07/18 01:00 08/07/18 01:00 Lab Results 08/07/18 08/07/18 Range/Units 01:00 01:00 WBC 4.0 L (4.5-11.0) X10^3/uL RBC 4.00 (4.0-5.2) X10^6/uL Hgb 12.7 (12.0-16.0) g/dL Hct 37.1 (36-46) % MCV 92.8 (80-100) fL MCH 31.8 (26-34) PG MCHC 34.3 (30-36) % RDW 18.3 H (11.6-14.8) % Plt Count 180 (150-400) X10^3/uL Neut % (Auto) 39.3 L (50-75) % Lymph % (Auto) 51.1 H (25-40) % [place] % (Auto) 7.8 (3-14) % Eos % (Auto) 1.1 L (2-4) % Baso % (Auto) 0.7 (0-2) % Neut # (Auto) 1600 L (3621-6218) /uL Sodium 142 (137-145) mmol/L Potassium 3.4 (3.4-5.1) mmol/L Chloride 106 (98-107) mmol/L Carbon Dioxide 25 (22-32) mmol/L BUN 11 (7-17) mg/dL Creatinine 0.60 (0.52-1.04) mg/dL Estimated GFR > 60.0 (>60) mL/min BUN/Creatinine Ratio 18.3 (6-22) Glucose 101 H (70-100) mg/dL Calcium 8.5 (8.4-10.2) mg/dL Total Bilirubin 0.2 (0.2-1.3) mg/dL AST 16 (14-36) IU/L ALT 15 (9-52) IU/L Alkaline Phosphatase 83 (38-126) U/L Total Protein 6.6 (6.3-8.2) g/dL Albumin 3.6 (3.5-5.0) g/dL Globulin 3.0 (1.7-4.1) g/dL Albumin/Globulin Ratio 1.2 (1.0-2.8) Lipase 25 (23-300) U/L Imaging Data US - abdomen: Radiologist's impression: Gallbladder contains numerous mobile small calculi. Gallbladder wall appears thickened measuring 4.3 mm, demonstrates positive sonographic Arora sign. There is dilation the common bile duct measures 1.2 cm, no aniya cholecystic fluid is identified pancreas is not well seen. Further evaluation with HIDA scan may be helpful. [facility] Narrative Medical decision making narrative: Patient's white count is low at 4 but consistent with last visit. She does not have any other signs of sepsis, she does have some tenderness but for me a.m. leftover quadrants as well as epigastric. Patient's ultrasound does show thickening of the gallbladder wall, positive sonographic Arora sign and dilation of the common bile duct. Patient has follow-up on August 14 with her surgeon but was not able to set up a sooner follow-up to have her gallbladder out. Patient's prior ultrasound on 07/31/2018 shows tenderness but no thickening or purely cholecystic fluid. Patient case was discussed with Dr. Miranda, at this time her white count has been stable Um not changing. There are no signs of sepsis. Patient has thickening but no fever. He does not recommend antibiotics, he does recommend pain control and antinausea medications and follow-up. She was referred to see them in the office here she can call for an appointment in the morning and they will be happy to follow up with her. If she prefers to follow with her general surgeon before before that she can also do that. Patient pain is improved after IV medication, as pharmacies are closed for several more hours given dose of norco in ER to tide her over till pharmacy opens. Patient comfortable with plan, states she will likely follow up with her regular surgeon but given contact in for Dr. Miranda. Discharge Plan Departure Patient Disposition: Home Clinical Impression: Cholelithiasis Discharge Date/Time: 08/07/18 03:04 Interventions: ED Discharge Assessment Last Done: 08/07/18 03:04 Instructions: Gallstones, DI for Cholecystitis Activity Restrictions/Additional Instructions: Follow up either at her appointment with her general surgeon on August 14 or you could follow up with a local surgeon here at [facility]. Call for an appointment in the morning. I did speak with Dr. Miranda on-call surgeon Dr. desir so the are aware of your current situation. Take anti nausea medication as prescribed you may take 1 tablet sublingually every 6 hr as needed for nausea. Continue to take [place] 1 tablet every 4-6 hours as needed for pain. Return to the emergency department for fevers greater than 100.4, rapidly worsening abdominal, flank or back pain, persistent vomiting, new chest pain or shortness of breath, passing out or other new or concerning symptoms. Prescriptions: New hydrocodone-acetaminophen [[place]] 5-325 mg tablet 1 tab PO Q4-6H PRN (Reason: pain) Qty: 14 RF: 0 ondansetron HCl [Zofran] 4 mg tablet 4 mg PO QID PRN (Reason: nausea and vomiting) Qty: 10 RF: 0 No Action Valacyclovir Hydrochloride (Valtrex) 1,000 mg PO PRN Qty: 0 RF: 0 zfvbagwnet-nnqyjcoyoryun-hqup 1 EACH tablet 1 tab PO Q4HP PRNQty: 10 RF: 0 hydrocodone-acetaminophen [[place]] 5-325 mg tablet 1 tab PO Q4-6H PRN (Reason: pain) Qty: 14 RF: 0 skuoxrudzu-itfqdghdqfucu-wevm [Fioricet] 50-300-40 mg capsule 1 cap PO Q4H PRN (Reason: headache) Qty: 14 RF: 0 hydrocodone-acetaminophen [[place]] 5-325 mg tablet 1 tab PO Q4-6H PRN (Reason: pain) Qty: 10 RF: 0 Referrals: Jorge Paredes MD [Primary Care Provider] - Demetrio Miranda MD [Physician] -
--- NOTE | 2018-08-07 01:40 | ED_ITS ---
HPI - Abdominal Pain General Chief Complaint: Abdominal Pain Stated Complaint: abdominal pain thinks gall bladder Time Seen by Provider: 08/07/18 00:24 Source: patient and old records reviewed Mode of arrival: ambulatory Limitations: no limitations History of Present Illness HPI narrative: This is a 48-year-old who returns with abdominal pain. Patient was seen here several times before for similar symptoms. Patient has had right upper quadrant pain that radiates around to the back she denies any fevers that are documented but has low or she denies any shortness of breath or chest pain. She has been nauseated, she denies vomiting. She is not having any diarrhea or constipation. She has not had any urinary symptoms. Patient states that the pain wraps around the right side. Patient has a follow-up appointment on August 14 with her general surgeon who did her hernia repair as well as abdominal plasty. She also has a history significant for Geremias-en-Y bypass. Patient states that she is following up because of her gallbladder and has been told it is a bad gallbladder Related Data Home Medications Medication Instructions Recorded Confirmed Valacyclovir Hydrochloride 1,000 mg PO PRN #0 09/13/10 07/31/18 (Valtrex) Previous Rx's Medication Instructions Recorded wirligtqou-dpsjeovpsrvju-ojqg 1 tab PO Q4HP PRN #10 tab 11/07/17 upuemigtca-hrculbzvujcht-sffv 1 cap PO Q4H PRN #14 cap 01/05/18 [Fioricet] hydrocodone-acetaminophen [[place]] 1 tab PO Q4-6H PRN #10 tab 07/31/18 hydrocodone-acetaminophen [[place]] 1 tab PO Q4-6H PRN #14 tab 08/01/18 hydrocodone-acetaminophen [[place]] 1 tab PO Q4-6H PRN #14 tab 08/07/18 ondansetron HCl [Zofran] 4 mg PO QID PRN #10 tab 08/07/18 Allergies Allergy/AdvReac Type Severity Reaction Status Date / Time diflunisal [DIFLUNISAL] Allergy Unknown Verified 07/31/18 16:20 methocarbamol [From ROBAXIN] Allergy Unknown Verified 07/31/18 16:20 naproxen [From NAPROSYN] Allergy Unknown Verified 07/31/18 16:20 NSAIDS (Non-Steroidal Allergy Unknown Verified 07/31/18 16:20 Anti-Inflamma [NSAIDS (NON-STEROIDAL ANTI-INFLAMMA] Review of Systems Review of Systems All systems reviewed & are unremarkable except as noted in HPI and below Constitutional Denies chills, Denies fever(s), Denies increased appetite, Denies lethargy and Denies weakness Cardiovascular Denies chest pain, Denies irregular heart rhythm, Denies lightheadedness, Denies palpitations, Denies dyspnea and Denies orthopnea Respiratory Denies cough, Denies dyspnea and Denies wheezing Gastrointestinal Gastrointestinal: Reports abdominal pain, Denies change in bowel habits, Denies constipation, Denies fecal incontinence, Denies diarrhea, Denies nausea and Denies vomiting Genitourinary Denies hematuria, Denies urinary frequency, Denies dysuria and Denies flank pain Neurologic Denies weakness Endocrine Denies palpitations Allergic/Immunologic Denies wheezing [facility] [place] Medical History Migraines (Acute) Obesity (Acute) Surgical History History of abdominoplasty (Acute) Status post gastric bypass for obesity (Acute) Social History Smoking Status: Never smoker Exam Narrative Exam Narrative: GENERAL: Alert and oriented x three, well-nourished, well- appearing female in mild distress HEENT: Head normocephalic, atraumatic, EOMI, pupils reactive, face symmetric, moist mucous membranes NECK: Supple, full range of motion CARDIOVASCULAR: Regular rate and rhythm without murmurs, rubs or gallops. RESPIRATORY: Breath sounds equal bilaterally, no wheezes rales or rhonchi. ABDOMEN: Soft, mild right lower quadrant and epigastric tenderness. Normoactive bowel sounds all 4 quadrants. No guarding or reboress.und, rigidity , no mass : No CVA tenderness EXTREMITIES: Normal range of motion, no clubbing or edema. Neurovascularly intact NEUROLOGICAL: Cranial nerves II through XII grossly intact. Moving all extremities SKIN: Warm, dry, no petechiae, no rashes or lesions. Initial Vital Signs Initial Vital Signs: Vital Signs Temperature 97.1 F L 08/07/18 00:02 Pulse Rate 88 08/07/18 00:02 Respiratory Rate 18 08/07/18 00:02 Blood Pressure 120/80 08/07/18 00:02 Pulse Oximetry 98 08/07/18 00:02 Course Orders Ordered: ED Orders 08/07/18 01:00 Complete Blood Count AUTO DIFF Stat Comprehensive Metabolic Panel Stat Lipase Stat 08/07/18 01:12 US abdomen limited Stat Discontinued Medications Hydrocodone Bitart/Acetaminophen ([place] 5/325) 2 tab PO NOW ONE Stop: 08/07/18 02:40 Last Admin: 08/07/18 02:44 Dose: 2 tab Morphine Sulfate (Morphine) 4 mg IV NOW ONE Stop: 08/07/18 01:14 Last Admin: 08/07/18 01:21 Dose: 4 mg Vital Signs - 8 hr 08/07/18 00:02 08/07/18 01:24 08/07/18 02:43 Temperature 97.1 F L 97.9 F 98.0 F Pulse Rate 88 74 73 Respiratory Rate 18 18 16 Blood Pressure 120/80 Blood Pressure [Left Arm] 122/90 135/85 Pulse Oximetry 98 96 97 MDM - Abdominal Pain Lab Data Attestation: I reviewed the patient's lab results. Result diagrams: 08/07/18 01:00 08/07/18 01:00 Lab Results 08/07/18 08/07/18 Range/Units 01:00 01:00 WBC 4.0 L (4.5-11.0) X10^3/uL RBC 4.00 (4.0-5.2) X10^6/uL Hgb 12.7 (12.0-16.0) g/dL Hct 37.1 (36-46) % MCV 92.8 (80-100) fL MCH 31.8 (26-34) PG MCHC 34.3 (30-36) % RDW 18.3 H (11.6-14.8) % Plt Count 180 (150-400) X10^3/uL Neut % (Auto) 39.3 L (50-75) % Lymph % (Auto) 51.1 H (25-40) % Harney % (Auto) 7.8 (3-14) % Eos % (Auto) 1.1 L (2-4) % Baso % (Auto) 0.7 (0-2) % Neut # (Auto) 1600 L (1923-3256) /uL Sodium 142 (137-145) mmol/L Potassium 3.4 (3.4-5.1) mmol/L Chloride 106 (98-107) mmol/L Carbon Dioxide 25 (22-32) mmol/L BUN 11 (7-17) mg/dL Creatinine 0.60 (0.52-1.04) mg/dL Estimated GFR > 60.0 (>60) mL/min BUN/Creatinine Ratio 18.3 (6-22) Glucose 101 H (70-100) mg/dL Calcium 8.5 (8.4-10.2) mg/dL Total Bilirubin 0.2 (0.2-1.3) mg/dL AST 16 (14-36) IU/L ALT 15 (9-52) IU/L Alkaline Phosphatase 83 (38-126) U/L Total Protein 6.6 (6.3-8.2) g/dL Albumin 3.6 (3.5-5.0) g/dL Globulin 3.0 (1.7-4.1) g/dL Albumin/Globulin Ratio 1.2 (1.0-2.8) Lipase 25 (23-300) U/L Imaging Data US - abdomen: Radiologist's impression: Gallbladder contains numerous mobile small calculi. Gallbladder wall appears thickened measuring 4.3 mm, demonstrates positive sonographic Arora sign. There is dilation the common bile duct measures 1.2 cm, no aniya cholecystic fluid is identified pancreas is not well seen. Further evaluation with HIDA scan may be helpful. [facility] Narrative Medical decision making narrative: Patient's white count is low at 4 but consistent with last visit. She does not have any other signs of sepsis, she does have some tenderness but for me a.m. leftover quadrants as well as epigastric. Patient's ultrasound does show thickening of the gallbladder wall, positive sonographic Arora sign and dilation of the common bile duct. Patient has follow-up on August 14 with her surgeon but was not able to set up a sooner follow-up to have her gallbladder out. Patient's prior ultrasound on 12/2017 shows tenderness but no thickening or purely cholecystic fluid. Patient case was discussed with Dr. Miranda, at this time her white count has been stable Um not changing. There are no signs of sepsis. Patient has thickening but no fever. He does not recommend antibiotics, he does recommend pain control and antinausea medications and follow-up. She was referred to see them in the office here she can call for an appointment in the morning and they will be happy to follow up with her. If she prefers to follow with her general surgeon before before that she can also do that. Patient pain is improved after IV medication, as pharmacies are closed for several more hours given dose of norco in ER to tide her over till pharmacy opens. Patient comfortable with plan, states she will likely follow up with her regular surgeon but given contact in for Dr. Miranda. Discharge Plan Departure Patient Disposition: Home Clinical Impression: Cholelithiasis Discharge Date/Time: 08/07/18 03:04 Interventions: ED Discharge Assessment Last Done: 08/07/18 03:04 Instructions: Gallstones, DI for Cholecystitis Activity Restrictions/Additional Instructions: Follow up either at her appointment with her general surgeon on August 14 or you could follow up with a local surgeon here at [facility]. Call for an appointment in the morning. I did speak with Dr. Miranda on-call surgeon Dr. desir so the are aware of your current situation. Take anti nausea medication as prescribed you may take 1 tablet sublingually every 6 hr as needed for nausea. Continue to take [place] 1 tablet every 4-6 hours as needed for pain. Return to the emergency department for fevers greater than 100.4, rapidly worsening abdominal, flank or back pain, persistent vomiting, new chest pain or shortness of breath, passing out or other new or concerning symptoms. Prescriptions: New hydrocodone-acetaminophen [[place]] 5-325 mg tablet 1 tab PO Q4-6H PRN (Reason: pain) Qty: 14 RF: 0 ondansetron HCl [Zofran] 4 mg tablet 4 mg PO QID PRN (Reason: nausea and vomiting) Qty: 10 RF: 0 No Action Valacyclovir Hydrochloride (Valtrex) 1,000 mg PO PRN Qty: 0 RF: 0 sesejnfwda-dxmgwcozhvqyq-xheo 1 EACH tablet 1 tab PO Q4HP PRNQty: 10 RF: 0 hydrocodone-acetaminophen [[place]] 5-325 mg tablet 1 tab PO Q4-6H PRN (Reason: pain) Qty: 14 RF: 0 jdfmwzooxe-kgpfulblajlzb-jqon [Fioricet] 50-300-40 mg capsule 1 cap PO Q4H PRN (Reason: headache) Qty: 14 RF: 0 hydrocodone-acetaminophen [[place]] 5-325 mg tablet 1 tab PO Q4-6H PRN (Reason: pain) Qty: 10 RF: 0 Referrals: Jorge Paredes MD [Primary Care Provider] - Demetrio Miranda MD [Physician] -
[2018-08-07 02:43] VITALS: BP 135/85; PULSE 73; RESP 16; TEMP 36.7; O2SAT 97
[2018-08-07] MEDS: HYDROCODONE/ACET 5/325 TABLET 2 TAB PO (02:44)
== END 2018-08-07 03:04 | disposition home or self-care (01) ==
PROVIDERS: Emergency Provider Emergency Medicine; Family Provider Family Medicine; PCP Family Medicine
DX: K80.20 Calculus of gallbladder without cholecystitis without obstruction (principal)
CPT/HCPCS: 36591; 76705; 80053; 83690; 85025; 96374; 99282; 99284; J2270

== ENCOUNTER 2018-08-08 13:50 | Inpatient (IN) | payer MEDICARE, SELFPAY ==
[2018-08-08] VITALS (7 sets, daily range): BP systolic 117–152; BP diastolic 77–93; PULSE 76–87; RESP 15–18; TEMP 36.2–37.1; O2SAT 93–99; BMI 30.7; BMI 32.0
--- NOTE | 2018-08-08 15:05 | DI.US.S_ITS ---
PROCEDURE: US ABDOMEN LIMITED INDICATIONS: worsening/constant ruq abd pain, known stones TECHNIQUE: Real-time focused scanning was performed of the abdomen, with image documentation. COMPARISON: , US, US ABDOMEN LIMITED, 08/07/2018, 1:31. FINDINGS: Liver is normal in size and is homogeneous in parenchymal echotexture. No discrete hepatic lesion is seen. Gallstones and sludge material in dependent portion of gallbladder lumen is seen. Thickened gallbladder wall with hyperemia is noted and measures up to 4 mm in thickness. Positive sonographic Arora sign is seen. No gross pericholecystic fluid. Common bile duct is mildly distended and measures 11 mm in diameter. No intrahepatic biliary ductal dilatation. No gross choledocholithiasis is noted. The visualized portion of pancreas shows no gross abnormality. Right kidney show no hydronephrosis. IMPRESSION: Cholelithiasis with sonographic findings suggestive of acute cholecystitis. Mild dilatation of common bile duct, no gross choledocholithiasis is seen. Dictated by: Quentin Clayton M.D. on 08/08/2018 at 16:03 Approved by: Quentin Clayton M.D. on 08/08/2018 at 16:05
--- NOTE | 2018-08-08 15:09 | ED.ABDPAIN ---
HPI - Abdominal Pain General Chief Complaint: Abdominal Pain Stated Complaint: CONTINUED ABDOMINAL PAIN Time Seen by Provider: 08/08/18 14:37 Source: patient Mode of arrival: ambulatory Limitations: no limitations History of Present Illness HPI narrative: Patient presents complaining of right upper quadrant abdominal pain. She was diagnosed about 1 week ago with gallstones, and referred to surgery, who she is going to see in about a week. Patient states that initially, she was having intermittent bouts of pain, but that now, her pain has become continuous. Patient denies any nausea or vomiting. She states she does not eat much, because she has had a gastric bypass. She has however been trying to eat a low-fat diet. Patient states that she has not had any fevers or jaundice. No other complaints this time. She states her pain is about a 5/10 currently. Eating makes it somewhat worse. Nothing makes it better. Related Data Home Medications Medication Instructions Recorded Confirmed duloxetine 60 mg PO BID 08/08/18 08/16/18 levetiracetam 750 mg PO BID 08/08/18 08/16/18 quetiapine 400 - 800 mg PO BEDTIME 08/08/18 08/16/18 hydrocodone-acetaminophen 2 tab PO Q6H PRN 08/16/18 08/16/18 Previous Rx's Medication Instructions Recorded ondansetron HCl [Zofran] 4 mg PO QID PRN #10 tab 08/07/18 gabapentin [Neurontin] 300 mg PO BID #30 cap 08/10/18 hydrocodone-acetaminophen 2 tab PO Q4-6H PRN #12 tab 08/16/18 gabapentin 400 mg PO BID #20 cap 08/17/18 oxycodone See Label Instructions .ROUTE 08/17/18 .COMPLEX PRN #30 tab oxycodone See Label Instructions .ROUTE 08/17/18 .COMPLEX PRN #30 tab Allergies Allergy/AdvReac Type Severity Reaction Status Date / Time diflunisal [DIFLUNISAL] Allergy Unknown Verified 08/16/18 15:15 methocarbamol [From ROBAXIN] Allergy Unknown Verified 08/16/18 15:15 naproxen [From NAPROSYN] Allergy Unknown Verified 08/16/18 15:15 NSAIDS (Non-Steroidal Allergy Unknown Verified 08/16/18 15:15 Anti-Inflamma [NSAIDS (NON-STEROIDAL ANTI-INFLAMMA] Review of Systems Review of Systems All systems reviewed & are unremarkable except as noted in HPI and below Constitutional Denies chills, Denies fever(s), Denies lethargy and Denies weakness Eyes Denies change in vision, Denies eye discharge, Denies irritation and Denies loss of vision ENT Ears, Nose, Mouth, and Throat: Denies change in voice, Denies neck pain and Denies sore throat Cardiovascular Denies chest pain, Denies irregular heart rhythm, Denies lightheadedness, Denies palpitations, Denies dyspnea, Denies dyspnea on exertion and Denies orthopnea Respiratory Denies cough, Denies dyspnea, Denies dyspnea on exertion and Denies wheezing Gastrointestinal Gastrointestinal: Reports abdominal pain, Denies change in bowel habits, Denies diarrhea, Denies nausea and Denies vomiting Genitourinary Denies hematuria, Denies flank pain, Denies urinary incontinence and Denies urinary urgency Musculoskeletal Denies neck pain Integumentary/Breasts Denies pruritus, Denies erythema, Denies rash and Denies wounds Neurologic Denies confusion, Denies loss of vision and Denies weakness Psychiatric Denies anxiety, Denies confusion, Denies depression, Denies homicidal ideation and Denies suicidal ideation Endocrine Denies palpitations Hematologic/Lymphatic Denies easy bruising Allergic/Immunologic Denies wheezing [facility] Medical History Gallstones (Acute) Migraines (Acute) Obesity (Chronic) Anxiety (Acute) Depression (Acute) Surgical History History of abdominoplasty (Resolved) Status post gastric bypass for obesity (Acute) H/O hernia repair (Acute) History of endometrial ablation (Acute) History of left shoulder replacement (Acute) Family History Mother Cardiac dysrhythmia Social History marital status: unmarried,living together household members: significant other and children occupational status: unemployed Smoking Status: Never smoker alcohol intake: never substance use type: does not use Exam Initial Vital Signs Initial Vital Signs: Vital Signs Temperature 97.1 F L 08/08/18 14:01 Pulse Rate 87 08/08/18 14:01 Respiratory Rate 15 08/08/18 14:01 Blood Pressure 130/86 08/08/18 14:01 Pulse Oximetry 99 08/08/18 14:01 Const General: cooperative and well developed Nutritional Appearance: well nourished Orientation: alert, awake, oriented x3 and not confused [facility] Head: normocephalic and atraumatic Ears: external ears normal and TM's normal bilaterally Nose: external nose normal and No nasal discharge Face and sinus: face symmetric and No dry mucous membranes Mouth: oral mucosae normal and moist mucous membranes Teeth and gingiva: dentition normal Eyes General: appearance normal, both eyes and all related structures Eyelids: eyelids normal Conjunctivae: conjunctivae normal Sclera: sclerae normal Pupils: PERRL EOM: EOM intact bilaterally Neck Neck: normal visual inspection, trachea midline, No lymphadenopathy, No midline deformity and No JVD Lymphatic: No lymphedema Chest Chest: normal inspection of the chest Resp Effort & Inspection: normal respiratory effort, able to speak in complete sentences, no respiratory distress and no use of accessory muscles Auscultation: clear to auscultation bilaterally, no rales, no rhonchi and no wheezes Cardio Rate: regular rate Rhythm: regular rhythm Heart Sounds: no click, no gallops, no murmurs and no rubs Pulses: normal peripheral pulses GI Inspection: non-distended Palpation: soft, no hepatosplenomegaly, No guarding, No pulsatile mass and tender (Right upper quadrant, moderate) Back/Spine/Pelvis Back: No CVA tenderness Cervical Spine: cervical ROM normal and No pain with cervical ROM Thoracic/Lumbar Spine: thoracic and lumbar spine normal to inspection Skin General: no rashes or lesions noted, No jaundice and No petechiae Neuro General: alert, oriented x3, gait normal and no focal motor deficits Speech: speech normal Extrem General: full ROM, no clubbing, cyanosis or edema, no pedal edema and no calf tenderness Psych Appearance: well kempt Mental Status: mental status grossly normal Attitude: cooperative Thought Content: normal and suicidality Judgment: judgment good Course Course Narrative: Patient was worked up with labs and ultrasound of her abdomen. She was found to have findings on ultrasound similarly concerning for acute cholecystitis as with yesterday's ultrasound. I did speak with Dr. Gonzalez, who is on-call for surgery, and he did agree to admit the patient to his service. I informed the patient of the findings and the plan and she was agreeable. Orders Ordered: Discontinued Medications Hydrocodone Bitart/Acetaminophen (Comins 5/325) 2 tab PO Q6HR PRN PRN Reason: Pain, Severe (7-10) Last Admin: 08/10/18 14:31 Dose: 2 tab Admin: 08/10/18 10:47 Dose: 2 tab Admin: 08/09/18 19:31 Dose: 2 tab Bupivacaine HCl (Sensorcaine 0.5% (Pf)) 30 ml INJ NOW ONE Stop: 08/09/18 14:07 Last Admin: 08/09/18 14:06 Dose: 16 ml Duloxetine HCl (Cymbalta) 60 mg PO BID [facility] Last Admin: 08/10/18 09:05 Dose: 60 mg Admin: 08/09/18 21:26 Dose: 60 mg Admin: 08/09/18 09:28 Dose: 60 mg Admin: 08/08/18 20:31 Dose: 60 mg Enoxaparin Sodium (Lovenox) 40 mg SUBCUT NOW ONE Stop: 08/08/18 18:35 Last Admin: 08/08/18 20:31 Dose: 40 mg Enoxaparin Sodium (Lovenox) 40 mg SUBCUT DAILY [facility] Last Admin: 08/10/18 09:05 Dose: 40 mg Gabapentin (Neurontin) 300 mg PO BID [facility] Last Admin: 08/10/18 09:07 Dose: 300 mg Admin: 08/09/18 21:26 Dose: 300 mg Glucagon (Glucagen) 1 mg IV NOW ONE Stop: 08/09/18 15:31 Last Admin: 08/09/18 15:31 Dose: 1 mg Hydromorphone HCl (Dilaudid) 1 mg IV Q3H PRN PRN Reason: Pain, Moderate (4-6) Hydromorphone HCl (Dilaudid) 1 mg IV Q3H PRN PRN Reason: Pain, Moderate (4-6) Last Admin: 08/09/18 10:05 Dose: 1 mg Admin: 08/09/18 06:55 Dose: 1 mg Admin: 08/09/18 03:09 Dose: 1 mg Admin: 08/08/18 22:21 Dose: 1 mg Admin: 08/08/18 19:09 Dose: 1 mg Hydromorphone HCl (Dilaudid) 1 mg IV Q2H PRN PRN Reason: Pain, Moderate (4-6) Last Admin: 08/10/18 12:38 Dose: 1 mg Admin: 08/10/18 09:05 Dose: 1 mg Admin: 08/10/18 05:46 Dose: 1 mg Admin: 08/10/18 02:33 Dose: 1 mg Admin: 08/09/18 23:33 Dose: 1 mg Admin: 08/09/18 21:25 Dose: 1 mg Admin: 08/09/18 17:47 Dose: 1 mg Admin: 08/09/18 12:38 Dose: 1 mg Cefotetan Disodium/Dextrose (Cefotan) 2 gm in 50 mls @ 100 mls/hr IV Q12HR BRITTNI Last Infusion: 08/10/18 13:53 Dose: 0 mls/hr Admin: 08/10/18 12:40 Dose: 100 mls/hr Infusion: 08/10/18 00:15 Dose: 0 mls/hr Admin: 08/09/18 23:39 Dose: 100 mls/hr Infusion: 08/09/18 23:38 Dose: 0 mls/hr Admin: 08/09/18 12:38 Dose: 100 mls/hr Infusion: 08/09/18 00:45 Dose: 0 mls/hr Admin: 08/09/18 00:05 Dose: 100 mls/hr Lactated Ringer's (Lactated Ringers) 1,000 mls @ 100 mls/hr IV CONT BRITTNI Last Admin: 08/10/18 10:49 Dose: 100 mls/hr Infusion: 08/09/18 17:15 Dose: 0 mls/hr Admin: 08/09/18 05:26 Dose: 100 mls/hr Infusion: 08/09/18 04:51 Dose: 100 mls/hr Admin: 08/08/18 18:51 Dose: 100 mls/hr Lactated Ringer's (Lactated Ringers) 1,000 mls @ 42 mls/hr IV CONT BRITTNI Last Admin: 08/09/18 16:06 Dose: 42 mls/hr Acetaminophen (Ofirmev) 1,000 mg in 100 mls @ 400 mls/hr IV NOW ONE Stop: 08/09/18 16:05 Last Admin: 08/09/18 16:01 Dose: 400 mls/hr Lactated Ringer's (Lactated Ringers) 1,000 mls @ 125 mls/hr IV CONT BRITTNI Last Infusion: 08/10/18 02:11 Dose: 0 mls/hr Admin: 08/09/18 17:44 Dose: 125 mls/hr Influenza Virus Vaccine (Flu Vaccine) 0.5 ml IM .ONCE ONE Stop: 08/08/18 20:01 Last Admin: 08/08/18 19:13 Dose: 0.5 ml Iopamidol (Isovue-300) 50 ml INJ NOW ONE Stop: 08/09/18 14:07 Last Admin: 08/09/18 14:06 Dose: 50 ml Levetiracetam (Keppra) 750 mg PO BID [facility] Last Admin: 08/10/18 09:06 Dose: 750 mg Admin: 08/09/18 21:26 Dose: 750 mg Admin: 08/09/18 09:28 Dose: 750 mg Admin: 08/08/18 20:31 Dose: 750 mg Morphine Sulfate (Morphine) 4 mg IV NOW ONE Stop: 08/08/18 15:24 Last Admin: 08/08/18 15:47 Dose: Not Given Morphine Sulfate (Morphine) 4 mg SUBCUT NOW ONE Stop: 08/08/18 15:49 Last Admin: 08/08/18 15:54 Dose: 4 mg Morphine Sulfate (Morphine) 4 mg IV Q4HR PRN PRN Reason: Pain, Severe (7-10) Naloxone HCl (Narcan) 0.2 mg IV Q2MIN PRN PRN Reason: Opiate Reversal Ondansetron HCl (Zofran) 4 mg IV Q4HR PRN PRN Reason: Nausea And Vomiting Last Admin: 08/09/18 23:33 Dose: 4 mg Admin: 08/09/18 19:31 Dose: 4 mg Quetiapine Fumarate (Seroquel) 800 mg PO BEDTIME [facility] Last Admin: 08/09/18 21:26 Dose: 800 mg Admin: 08/08/18 22:21 Dose: 800 mg Sodium Chloride (Normal Saline 0.9% Flush) 10 ml IV PRN PRN PRN Reason: Flush Last Admin: 08/09/18 17:44 Dose: 10 ml Admin: 08/08/18 19:00 Dose: 10 ml Vital Signs - 8 hr 08/08/18 14:01 Temperature 97.1 F L Pulse Rate 87 Respiratory Rate 15 Blood Pressure 130/86 Pulse Oximetry 99 MDM - Abdominal Pain Medical Records Attestation: I reviewed the patient's medical records. Lab Data Attestation: I reviewed the patient's lab results. Result diagrams: 08/10/18 05:46 08/10/18 05:46 Lab Results 08/08/18 08/08/18 08/08/18 Range/Units 15:14 15:14 15:14 WBC 3.3 L (4.5-11.0) X10^3/uL RBC 4.07 (4.0-5.2) X10^6/uL Hgb 13.0 (12.0-16.0) g/dL Hct 37.8 (36-46) % MCV 92.8 (80-100) fL MCH 31.9 (26-34) PG MCHC 34.4 (30-36) % RDW 18.3 H (11.6-14.8) % Plt Count 201 (150-400) X10^3/uL Neut % (Auto) 50.5 (50-75) % Lymph % (Auto) 40.9 H (25-40) % [place] % (Auto) 6.6 (3-14) % Eos % (Auto) 1.5 L (2-4) % Baso % (Auto) 0.5 (0-2) % Neut # (Auto) 1700 L (0151-3887) /uL Sodium 143 (137-145) mmol/L Potassium 3.8 (3.4-5.1) mmol/L Chloride 104 (98-107) mmol/L Carbon Dioxide 27 (22-32) mmol/L BUN 11 (7-17) mg/dL Creatinine 0.60 (0.52-1.04) mg/dL Estimated GFR > 60.0 (>60) mL/min BUN/Creatinine Ratio 18.3 (6-22) Glucose 93 (70-100) mg/dL Calcium 8.4 (8.4-10.2) mg/dL Total Bilirubin 0.3 (0.2-1.3) mg/dL AST 18 (14-36) IU/L ALT 20 (9-52) IU/L Alkaline Phosphatase 82 (38-126) U/L Total Protein 6.7 (6.3-8.2) g/dL Albumin 3.7 (3.5-5.0) g/dL Globulin 3.0 (1.7-4.1) g/dL Albumin/Globulin Ratio 1.2 (1.0-2.8) Amylase 42 (30-110) U/L Lipase 15 L (23-300) U/L Urine Color Urine Appearance Urine pH (4.5-8.0) Ur Specific [place] (1.000-1.035) Urine Protein (Negative) Urine Glucose (UA) (Normal) g/dL Urine Ketones (NEGATIVE) Urine Occult Blood (Negative) Urine Nitrate (Negative) Urine Bilirubin (NEGATIVE) Urine Urobilinogen (0.2) E.U./dL Ur Leukocyte Esterase (NEGATIVE) Urine RBC (0-5/HPF) Urine WBC (0-5/HPF) Urine Bacteria (None) Ur Culture Indicated? Micro UA Comment 08/08/18 08/10/18 08/10/18 Range/Units Unknown 05:46 05:46 WBC 7.8 D (4.5-11.0) X10^3/uL RBC 3.85 L (4.0-5.2) X10^6/uL Hgb 12.4 (12.0-16.0) g/dL Hct 35.7 L (36-46) % MCV 92.8 (80-100) fL MCH 32.3 (26-34) PG MCHC 34.8 (30-36) % RDW 18.4 H (11.6-14.8) % Plt Count 192 (150-400) X10^3/uL Neut % (Auto) 80.6 H D (50-75) % Lymph % (Auto) 10.9 L D (25-40) % [place] % (Auto) 8.4 (3-14) % Eos % (Auto) 0.0 L (2-4) % Baso % (Auto) 0.1 (0-2) % Neut # (Auto) 6300 (4532-6141) /uL Sodium 137 (137-145) mmol/L Potassium 4.2 (3.4-5.1) mmol/L Chloride 99 (98-107) mmol/L Carbon Dioxide 26 (22-32) mmol/L BUN 7 (7-17) mg/dL Creatinine 0.60 (0.52-1.04) mg/dL Estimated GFR > 60.0 (>60) mL/min BUN/Creatinine Ratio 11.7 (6-22) Glucose 121 H (70-100) mg/dL Calcium 8.6 (8.4-10.2) mg/dL Total Bilirubin 1.8 H (0.2-1.3) mg/dL AST 1046 H (14-36) IU/L ALT 564 H (9-52) IU/L Alkaline Phosphatase 230 H D (38-126) U/L Total Protein 6.4 (6.3-8.2) g/dL Albumin 3.4 L (3.5-5.0) g/dL Globulin 3.0 (1.7-4.1) g/dL Albumin/Globulin Ratio 1.1 (1.0-2.8) Amylase (30-110) U/L Lipase (23-300) U/L Urine Color Yellow Urine Appearance Clear Urine pH 7.0 (4.5-8.0) Ur Specific [place] 1.010 (1.000-1.035) Urine Protein Negative (Negative) Urine Glucose (UA) Negative (Normal) g/dL Urine Ketones Negative (NEGATIVE) Urine Occult Blood Negative (Negative) Urine Nitrate Negative (Negative) Urine Bilirubin Negative (NEGATIVE) Urine Urobilinogen 0.2 (0.2) E.U./dL Ur Leukocyte Esterase Negative (NEGATIVE) Urine RBC None seen (0-5/HPF) Urine WBC None seen (0-5/HPF) Urine Bacteria None seen (None) Ur Culture Indicated? Cult not indicated Micro UA Comment Microscopic normal Point of care testing: Point of Care Testing Glucose POC 82 Imaging Data US - abdomen: Radiologist's impression: [address] [id number] Ultrasound Report Signed Patient: Roma Bowen MR#: [id number] : 1970 Acct:[id number] Age/Sex: 48 / F Date of Service: 08/08/18 Loc: ED Accession Number: [id number] Procedure: US abdomen limited Ordering Provider: Susan Monteiro MD PROCEDURE: US ABDOMEN LIMITED INDICATIONS: worsening/constant ruq abd pain, known stones TECHNIQUE: Real-time focused scanning was performed of the abdomen, with image documentation. COMPARISON: [facility], US, US ABDOMEN LIMITED, 08/07/2018, 1:31. FINDINGS: Liver is normal in size and is homogeneous in parenchymal echotexture. No discrete hepatic lesion is seen. Gallstones and sludge material in dependent portion of gallbladder lumen is seen. Thickened gallbladder wall with hyperemia is noted and measures up to 4 mm in thickness. Positive sonographic Arora sign is seen. No gross pericholecystic fluid. Common bile duct is mildly distended and measures 11 mm in diameter. No intrahepatic biliary ductal dilatation. No gross choledocholithiasis is noted. The visualized portion of pancreas shows no gross abnormality. Right kidney show no hydronephrosis. IMPRESSION: Cholelithiasis with sonographic findings suggestive of acute cholecystitis. Mild dilatation of common bile duct, no gross choledocholithiasis is seen. Dictated by: Quentin Clayton M.D. on 08/08/2018 at 16:03 Approved by: Quentin Clayton M.D. on 08/08/2018 at 16:05 Discharge Plan Departure Patient Disposition: Admitted As Inpatient Clinical Impression: Acute cholecystitis Discharge Date/Time: 08/08/18 18:34 Interventions: ED Discharge Assessment Last Done: 08/08/18 18:33 Admit Date/Time: 08/08/18 17:49 Admit Provider: Ty Gonzalez
--- NOTE | 2018-08-08 15:15 | ED_ITS ---
HPI - Abdominal Pain General Chief Complaint: Abdominal Pain Stated Complaint: CONTINUED ABDOMINAL PAIN Time Seen by Provider: 08/08/18 14:37 Source: patient Mode of arrival: ambulatory Limitations: no limitations History of Present Illness HPI narrative: Patient presents complaining of right upper quadrant abdominal pain. She was diagnosed about 1 week ago with gallstones, and referred to surgery, who she is going to see in about a week. Patient states that initially , she was having intermittent bouts of pain, but that now, her pain has become continuous. Patient denies any nausea or vomiting. She states she does not eat much, because she has had a gastric bypass. She has however been trying to eat a low-fat diet. Patient states that she has not had any fevers or jaundice. No other complaints this time. She states her pain is about a 5/10 currently. Eating makes it somewhat worse. Nothing makes it better. Related Data Home Medications Medication Instructions Recorded Confirmed duloxetine 60 mg PO BID 08/08/18 08/16/18 levetiracetam 750 mg PO BID 08/08/18 08/16/18 quetiapine 400 - 800 mg PO BEDTIME 08/08/18 08/16/18 hydrocodone-acetaminophen 2 tab PO Q6H PRN 08/16/18 08/16/18 Previous Rx's Medication Instructions Recorded ondansetron HCl [Zofran] 4 mg PO QID PRN #10 tab 08/07/18 gabapentin [Neurontin] 300 mg PO BID #30 cap 08/10/18 hydrocodone-acetaminophen 2 tab PO Q4-6H PRN #12 tab 08/16/18 gabapentin 400 mg PO BID #20 cap 08/17/18 oxycodone See Label Instructions .ROUTE 08/17/18 .COMPLEX PRN #30 tab oxycodone See Label Instructions .ROUTE 08/17/18 .COMPLEX PRN #30 tab Allergies Allergy/AdvReac Type Severity Reaction Status Date / Time diflunisal [DIFLUNISAL] Allergy Unknown Verified 08/16/18 15:15 methocarbamol [From ROBAXIN] Allergy Unknown Verified 08/16/18 15:15 naproxen [From NAPROSYN] Allergy Unknown Verified 08/16/18 15:15 NSAIDS (Non-Steroidal Allergy Unknown Verified 08/16/18 15:15 Anti-Inflamma [NSAIDS (NON-STEROIDAL ANTI-INFLAMMA] Review of Systems Review of Systems All systems reviewed & are unremarkable except as noted in HPI and below Constitutional Denies chills, Denies fever(s), Denies lethargy and Denies weakness Eyes Denies change in vision, Denies eye discharge, Denies irritation and Denies loss of vision ENT Ears, Nose, Mouth, and Throat: Denies change in voice, Denies neck pain and Denies sore throat Cardiovascular Denies chest pain, Denies irregular heart rhythm, Denies lightheadedness, Denies palpitations, Denies dyspnea, Denies dyspnea on exertion and Denies orthopnea Respiratory Denies cough, Denies dyspnea, Denies dyspnea on exertion and Denies wheezing Gastrointestinal Gastrointestinal: Reports abdominal pain, Denies change in bowel habits, Denies diarrhea, Denies nausea and Denies vomiting Genitourinary Denies hematuria, Denies flank pain, Denies urinary incontinence and Denies urinary urgency Musculoskeletal Denies neck pain Integumentary/Breasts Denies pruritus, Denies erythema, Denies rash and Denies wounds Neurologic Denies confusion, Denies loss of vision and Denies weakness Psychiatric Denies anxiety, Denies confusion, Denies depression, Denies homicidal ideation and Denies suicidal ideation Endocrine Denies palpitations Hematologic/Lymphatic Denies easy bruising Allergic/Immunologic Denies wheezing [facility] Medical History Gallstones (Acute) Migraines (Acute) Obesity (Chronic) Anxiety (Acute) Depression (Acute) Surgical History History of abdominoplasty (Resolved) Status post gastric bypass for obesity (Acute) H/O hernia repair (Acute) History of endometrial ablation (Acute) History of left shoulder replacement (Acute) Family History Mother Cardiac dysrhythmia Social History marital status: unmarried,living together household members: significant other and children occupational status: unemployed Smoking Status: Never smoker alcohol intake: never substance use type: does not use Exam Initial Vital Signs Initial Vital Signs: Vital Signs Temperature 97.1 F L 08/08/18 14:01 Pulse Rate 87 08/08/18 14:01 Respiratory Rate 15 08/08/18 14:01 Blood Pressure 130/86 08/08/18 14:01 Pulse Oximetry 99 08/08/18 14:01 Const General: cooperative and well developed Nutritional Appearance: well nourished Orientation: alert, awake, oriented x3 and not confused [facility] Head: normocephalic and atraumatic Ears: external ears normal and TM's normal bilaterally Nose: external nose normal and No nasal discharge Face and sinus: face symmetric and No dry mucous membranes Mouth: oral mucosae normal and moist mucous membranes Teeth and gingiva: dentition normal Eyes General: appearance normal, both eyes and all related structures Eyelids: eyelids normal Conjunctivae: conjunctivae normal Sclera: sclerae normal Pupils: PERRL EOM: EOM intact bilaterally Neck Neck: normal visual inspection, trachea midline, No lymphadenopathy, No midline deformity and No JVD Lymphatic: No lymphedema Chest Chest: normal inspection of the chest Resp Effort & Inspection: normal respiratory effort, able to speak in complete sentences, no respiratory distress and no use of accessory muscles Auscultation: clear to auscultation bilaterally, no rales, no rhonchi and no wheezes Cardio Rate: regular rate Rhythm: regular rhythm Heart Sounds: no click, no gallops, no murmurs and no rubs Pulses: normal peripheral pulses GI Inspection: non-distended Palpation: soft, no hepatosplenomegaly, No guarding, No pulsatile mass and tender (Right upper quadrant, moderate) Back/Spine/Pelvis Back: No CVA tenderness Cervical Spine: cervical ROM normal and No pain with cervical ROM Thoracic/Lumbar Spine: thoracic and lumbar spine normal to inspection Skin General: no rashes or lesions noted, No jaundice and No petechiae Neuro General: alert, oriented x3, gait normal and no focal motor deficits Speech: speech normal Extrem General: full ROM, no clubbing, cyanosis or edema, no pedal edema and no calf tenderness Psych Appearance: well kempt Mental Status: mental status grossly normal Attitude: cooperative Thought Content: normal and suicidality Judgment: judgment good Course Course Narrative: Patient was worked up with labs and ultrasound of her abdomen. She was found to have findings on ultrasound similarly concerning for acute cholecystitis as with yesterday's ultrasound. I did speak with Dr. Gonzalez, who is on-call for surgery, and he did agree to admit the patient to his service. I informed the patient of the findings and the plan and she was agreeable. Orders Ordered: Discontinued Medications Hydrocodone Bitart/Acetaminophen ([place] 5/325) 2 tab PO Q6HR PRN PRN Reason: Pain, Severe (7-10) Last Admin: 08/10/18 14:31 Dose: 2 tab Admin: 08/10/18 10:47 Dose: 2 tab Admin: 08/09/18 19:31 Dose: 2 tab Bupivacaine HCl (Sensorcaine 0.5% (Pf)) 30 ml INJ NOW ONE Stop: 08/09/18 14:07 Last Admin: 08/09/18 14:06 Dose: 16 ml Duloxetine HCl (Cymbalta) 60 mg PO BID [facility] Last Admin: 08/10/18 09:05 Dose: 60 mg Admin: 08/09/18 21:26 Dose: 60 mg Admin: 08/09/18 09:28 Dose: 60 mg Admin: 08/08/18 20:31 Dose: 60 mg Enoxaparin Sodium (Lovenox) 40 mg SUBCUT NOW ONE Stop: 08/08/18 18:35 Last Admin: 08/08/18 20:31 Dose: 40 mg Enoxaparin Sodium (Lovenox) 40 mg SUBCUT DAILY [facility] Last Admin: 08/10/18 09:05 Dose: 40 mg Gabapentin (Neurontin) 300 mg PO BID [facility] Last Admin: 08/10/18 09:07 Dose: 300 mg Admin: 08/09/18 21:26 Dose: 300 mg Glucagon (Glucagen) 1 mg IV NOW ONE Stop: 08/09/18 15:31 Last Admin: 08/09/18 15:31 Dose: 1 mg Hydromorphone HCl (Dilaudid) 1 mg IV Q3H PRN PRN Reason: Pain, Moderate (4-6) Hydromorphone HCl (Dilaudid) 1 mg IV Q3H PRN PRN Reason: Pain, Moderate (4-6) Last Admin: 08/09/18 10:05 Dose: 1 mg Admin: 08/09/18 06:55 Dose: 1 mg Admin: 08/09/18 03:09 Dose: 1 mg Admin: 08/08/18 22:21 Dose: 1 mg Admin: 08/08/18 19:09 Dose: 1 mg Hydromorphone HCl (Dilaudid) 1 mg IV Q2H PRN PRN Reason: Pain, Moderate (4-6) Last Admin: 08/10/18 12:38 Dose: 1 mg Admin: 08/10/18 09:05 Dose: 1 mg Admin: 08/10/18 05:46 Dose: 1 mg Admin: 08/10/18 02:33 Dose: 1 mg Admin: 08/09/18 23:33 Dose: 1 mg Admin: 08/09/18 21:25 Dose: 1 mg Admin: 08/09/18 17:47 Dose: 1 mg Admin: 08/09/18 12:38 Dose: 1 mg Cefotetan Disodium/Dextrose (Cefotan) 2 gm in 50 mls @ 100 mls/hr IV Q12HR BRITTNI Last Infusion: 08/10/18 13:53 Dose: 0 mls/hr Admin: 08/10/18 12:40 Dose: 100 mls/hr Infusion: 08/10/18 00:15 Dose: 0 mls/hr Admin: 08/09/18 23:39 Dose: 100 mls/hr Infusion: 08/09/18 23:38 Dose: 0 mls/hr Admin: 08/09/18 12:38 Dose: 100 mls/hr Infusion: 08/09/18 00:45 Dose: 0 mls/hr Admin: 08/09/18 00:05 Dose: 100 mls/hr Lactated Ringer's (Lactated Ringers) 1,000 mls @ 100 mls/hr IV CONT BRITTNI Last Admin: 08/10/18 10:49 Dose: 100 mls/hr Infusion: 08/09/18 17:15 Dose: 0 mls/hr Admin: 08/09/18 05:26 Dose: 100 mls/hr Infusion: 08/09/18 04:51 Dose: 100 mls/hr Admin: 08/08/18 18:51 Dose: 100 mls/hr Lactated Ringer's (Lactated Ringers) 1,000 mls @ 42 mls/hr IV CONT BRITTNI Last Admin: 08/09/18 16:06 Dose: 42 mls/hr Acetaminophen (Ofirmev) 1,000 mg in 100 mls @ 400 mls/hr IV NOW ONE Stop: 08/09/18 16:05 Last Admin: 08/09/18 16:01 Dose: 400 mls/hr Lactated Ringer's (Lactated Ringers) 1,000 mls @ 125 mls/hr IV CONT BRITTNI Last Infusion: 08/10/18 02:11 Dose: 0 mls/hr Admin: 08/09/18 17:44 Dose: 125 mls/hr Influenza Virus Vaccine (Flu Vaccine) 0.5 ml IM .ONCE ONE Stop: 08/08/18 20:01 Last Admin: 08/08/18 19:13 Dose: 0.5 ml Iopamidol (Isovue-300) 50 ml INJ NOW ONE Stop: 08/09/18 14:07 Last Admin: 08/09/18 14:06 Dose: 50 ml Levetiracetam (Keppra) 750 mg PO BID [facility] Last Admin: 08/10/18 09:06 Dose: 750 mg Admin: 08/09/18 21:26 Dose: 750 mg Admin: 08/09/18 09:28 Dose: 750 mg Admin: 08/08/18 20:31 Dose: 750 mg Morphine Sulfate (Morphine) 4 mg IV NOW ONE Stop: 08/08/18 15:24 Last Admin: 08/08/18 15:47 Dose: Not Given Morphine Sulfate (Morphine) 4 mg SUBCUT NOW ONE Stop: 08/08/18 15:49 Last Admin: 08/08/18 15:54 Dose: 4 mg Morphine Sulfate (Morphine) 4 mg IV Q4HR PRN PRN Reason: Pain, Severe (7-10) Naloxone HCl (Narcan) 0.2 mg IV Q2MIN PRN PRN Reason: Opiate Reversal Ondansetron HCl (Zofran) 4 mg IV Q4HR PRN PRN Reason: Nausea And Vomiting Last Admin: 08/09/18 23:33 Dose: 4 mg Admin: 08/09/18 19:31 Dose: 4 mg Quetiapine Fumarate (Seroquel) 800 mg PO BEDTIME [facility] Last Admin: 08/09/18 21:26 Dose: 800 mg Admin: 08/08/18 22:21 Dose: 800 mg Sodium Chloride (Normal Saline 0.9% Flush) 10 ml IV PRN PRN PRN Reason: Flush Last Admin: 08/09/18 17:44 Dose: 10 ml Admin: 08/08/18 19:00 Dose: 10 ml Vital Signs - 8 hr 08/08/18 14:01 Temperature 97.1 F L Pulse Rate 87 Respiratory Rate 15 Blood Pressure 130/86 Pulse Oximetry 99 MDM - Abdominal Pain Medical Records Attestation: I reviewed the patient's medical records. Lab Data Attestation: I reviewed the patient's lab results. Result diagrams: 08/10/18 05:46 08/10/18 05:46 Lab Results 08/08/18 08/08/18 08/08/18 Range/Units 15:14 15:14 15:14 WBC 3.3 L (4.5-11.0) X10^3/uL RBC 4.07 (4.0-5.2) X10^6/uL Hgb 13.0 (12.0-16.0) g/dL Hct 37.8 (36-46) % MCV 92.8 (80-100) fL MCH 31.9 (26-34) PG MCHC 34.4 (30-36) % RDW 18.3 H (11.6-14.8) % Plt Count 201 (150-400) X10^3/uL Neut % (Auto) 50.5 (50-75) % Lymph % (Auto) 40.9 H (25-40) % [place] % (Auto) 6.6 (3-14) % Eos % (Auto) 1.5 L (2-4) % Baso % (Auto) 0.5 (0-2) % Neut # (Auto) 1700 L (5818-5776) /uL Sodium 143 (137-145) mmol/L Potassium 3.8 (3.4-5.1) mmol/L Chloride 104 (98-107) mmol/L Carbon Dioxide 27 (22-32) mmol/L BUN 11 (7-17) mg/dL Creatinine 0.60 (0.52-1.04) mg/dL Estimated GFR > 60.0 (>60) mL/min BUN/Creatinine Ratio 18.3 (6-22) Glucose 93 (70-100) mg/dL Calcium 8.4 (8.4-10.2) mg/dL Total Bilirubin 0.3 (0.2-1.3) mg/dL AST 18 (14-36) IU/L ALT 20 (9-52) IU/L Alkaline Phosphatase 82 (38-126) U/L Total Protein 6.7 (6.3-8.2) g/dL Albumin 3.7 (3.5-5.0) g/dL Globulin 3.0 (1.7-4.1) g/dL Albumin/Globulin Ratio 1.2 (1.0-2.8) Amylase 42 (30-110) U/L Lipase 15 L (23-300) U/L Urine Color Urine Appearance Urine pH (4.5-8.0) Ur Specific [place] (1.000-1.035) Urine Protein (Negative) Urine Glucose (UA) (Normal) g/dL Urine Ketones (NEGATIVE) Urine Occult Blood (Negative) Urine Nitrate (Negative) Urine Bilirubin (NEGATIVE) Urine Urobilinogen (0.2) E.U./dL Ur Leukocyte Esterase (NEGATIVE) Urine RBC (0-5/HPF) Urine WBC (0-5/HPF) Urine Bacteria (None) Ur Culture Indicated? Micro UA Comment 08/08/18 08/10/18 08/10/18 Range/Units Unknown 05:46 05:46 WBC 7.8 D (4.5-11.0) X10^3/uL RBC 3.85 L (4.0-5.2) X10^6/uL Hgb 12.4 (12.0-16.0) g/dL Hct 35.7 L (36-46) % MCV 92.8 (80-100) fL MCH 32.3 (26-34) PG MCHC 34.8 (30-36) % RDW 18.4 H (11.6-14.8) % Plt Count 192 (150-400) X10^3/uL Neut % (Auto) 80.6 H D (50-75) % Lymph % (Auto) 10.9 L D (25-40) % [place] % (Auto) 8.4 (3-14) % Eos % (Auto) 0.0 L (2-4) % Baso % (Auto) 0.1 (0-2) % Neut # (Auto) 6300 (2979-0635) /uL Sodium 137 (137-145) mmol/L Potassium 4.2 (3.4-5.1) mmol/L Chloride 99 (98-107) mmol/L Carbon Dioxide 26 (22-32) mmol/L BUN 7 (7-17) mg/dL Creatinine 0.60 (0.52-1.04) mg/dL Estimated GFR > 60.0 (>60) mL/min BUN/Creatinine Ratio 11.7 (6-22) Glucose 121 H (70-100) mg/dL Calcium 8.6 (8.4-10.2) mg/dL Total Bilirubin 1.8 H (0.2-1.3) mg/dL AST 1046 H (14-36) IU/L ALT 564 H (9-52) IU/L Alkaline Phosphatase 230 H D (38-126) U/L Total Protein 6.4 (6.3-8.2) g/dL Albumin 3.4 L (3.5-5.0) g/dL Globulin 3.0 (1.7-4.1) g/dL Albumin/Globulin Ratio 1.1 (1.0-2.8) Amylase (30-110) U/L Lipase (23-300) U/L Urine Color Yellow Urine Appearance Clear Urine pH 7.0 (4.5-8.0) Ur Specific [place] 1.010 (1.000-1.035) Urine Protein Negative (Negative) Urine Glucose (UA) Negative (Normal) g/dL Urine Ketones Negative (NEGATIVE) Urine Occult Blood Negative (Negative) Urine Nitrate Negative (Negative) Urine Bilirubin Negative (NEGATIVE) Urine Urobilinogen 0.2 (0.2) E.U./dL Ur Leukocyte Esterase Negative (NEGATIVE) Urine RBC None seen (0-5/HPF) Urine WBC None seen (0-5/HPF) Urine Bacteria None seen (None) Ur Culture Indicated? Cult not indicated Micro UA Comment Microscopic normal Point of care testing: Point of Care Testing Glucose POC 82 Imaging Data US - abdomen: Radiologist's impression: [address] [address] Ultrasound Report Signed Patient: Roma Bowen MR#: [id number] : 1970 Acct:[id number] Age/Sex: 48 / F Date of Service: 08/08/18 Loc: ED Accession Number: [id number] Procedure: US abdomen limited Ordering Provider: Susan Monteiro MD PROCEDURE: US ABDOMEN LIMITED INDICATIONS: worsening/constant ruq abd pain, known stones TECHNIQUE: Real-time focused scanning was performed of the abdomen, with image documentation. COMPARISON: [facility], US, US ABDOMEN LIMITED, 08/07/2018, 1:31. FINDINGS: Liver is normal in size and is homogeneous in parenchymal echotexture. No discrete hepatic lesion is seen. Gallstones and sludge material in dependent portion of gallbladder lumen is seen. Thickened gallbladder wall with hyperemia is noted and measures up to 4 mm in thickness. Positive sonographic Arora sign is seen. No gross pericholecystic fluid. Common bile duct is mildly distended and measures 11 mm in diameter. No intrahepatic biliary ductal dilatation. No gross choledocholithiasis is noted. The visualized portion of pancreas shows no gross abnormality. Right kidney show no hydronephrosis. IMPRESSION: Cholelithiasis with sonographic findings suggestive of acute cholecystitis. Mild dilatation of common bile duct, no gross choledocholithiasis is seen. Dictated by: Quentin Clayton M.D. on 08/08/2018 at 16:03 Approved by: Quentin lCayton M.D. on 08/08/2018 at 16:05 Discharge Plan Departure Patient Disposition: Admitted As Inpatient Clinical Impression: Acute cholecystitis Discharge Date/Time: 08/08/18 18:34 Interventions: ED Discharge Assessment Last Done: 08/08/18 18:33 Admit Date/Time: 08/08/18 17:49 Admit Provider: Ty Gonzalez
[2018-08-08 15:16] LABS: Bacteria Urine None Seen; RBC Urine None Seen (0-5/HPF); WBC Urine None Seen (0-5/HPF)
[2018-08-08 15:17] LABS: Appearance Urine UA CLEAR; Bilirubin Urine UA NEGATIVE (NEGATIVE); Color Urine UA YELLOW; Glucose Urine UA NEGATIVE (Normal); Ketones Urine UA NEGATIVE (NEGATIVE); Leukocyte Esterase Urine UA NEGATIVE (NEGATIVE); Nitrite Urine UA NEGATIVE (Negative); Occult Blood Urine UA NEGATIVE (Negative); Protein Urine UA NEGATIVE (Negative); Urobilinogen Urine UA 0.2 E.U./dL (0.2)
[2018-08-08 15:21] LABS: Add Manual Diff / Slide Review NO; Basophils Percent Auto 0.5 % (0-2); Eosinophils Percent Auto 1.5 % (2-4); Hematocrit 37.8 % (36-46); Lymphocytes Percent Auto 40.9 % (25-40); Mean Corpuscular HGB Conc 34.4 % (30-36); Mean Corpuscular Hemoglobin 31.9 PG (26-34); Mean Corpuscular Volume 92.8 fL (80-100); Monocytes Percent Auto 6.6 % (3-14); Neutrophils Absolute Auto 1700 /uL (3000-5900); Neutrophils Percent Auto 50.5 % (50-75); Platelet Count 201 X10^3/uL (150-400); Red Blood Cell Count 4.07 X10^6/uL (4.0-5.2); Red Cell Distribution Width 18.3 % (11.6-14.8); White Blood Cell Count 3.3 X10^3/uL (4.5-11.0)
[2018-08-08 15:35] LABS: Culture Indicated Urine Cult Not Indicated; Urine Comments Microscopic Normal
[2018-08-08 15:36] LABS: Alanine Aminotransferase 20 IU/L (9-52); Albumin 3.7 g/dL (3.5-5.0); Albumin Globulin Ratio 1.2 (1.0-2.8); Alkaline Phosphatase 82 U/L (38-126); Aspartate Aminotransferase 18 IU/L (14-36); BUN Creatinine Ratio 18.3 (6-22); Bilirubin Total 0.3 mg/dL (0.2-1.3); Blood Urea Nitrogen 11 mg/dL (7-17); Calcium 8.4 mg/dL (8.4-10.2); Carbon Dioxide 27 mmol/L (22-32); Chloride 104 mmol/L (98-107); Estimated Glomerular Filt Rate > 60.0 mL/min (>60); Glucose 93 mg/dL (70-100); HEMOLYSIS < 15 (0-50); Potassium 3.8 mmol/L (3.4-5.1); Sodium 143 mmol/L (137-145); Total Protein 6.7 g/dL (6.3-8.2)
[2018-08-08] MEDS: MORPHINE 4 MG/ML INJ SUBCUT (15:54)
[2018-08-08 16:10] LABS: Amylase 42 U/L (30-110); Lipase 15 U/L (23-300)
--- NOTE | 2018-08-08 18:16 | PM.HP.1 ---
History of Present Illness Date Patient Seen: 08/08/18 Time Patient Seen: 18:00 Chief complaint: CONTINUED ABDOMINAL PAIN Narrative: The patient is a woman with a several month history of vague right upper quadrant tenderness with palpation. She has not been feeling quite herself. The last week or so the pain has become progressively worse and persistent. It is accompanied with anorexia. The patient significantly has had a open gastric Geremias-en-Y bypass and has lost about 250 lb. She had a subsequent repair of epigastric incisional hernias and a uterine ablation. Patient History Medical History Gallstones (Acute) Migraines (Acute) Obesity (Acute) Surgical History History of abdominoplasty (Acute) Status post gastric bypass for obesity (Acute) History of left shoulder replacement (Acute) Family & Social History Family History: Reviewed 08/08/18 by Ty Gonzalez MD Safety & Behavioral: Feels Safe in Current Yes Environment Tobacco & Substance use: Smoking Status Never smoker alcohol intake frequency 0-2 drinks per day Substance Use Type does not use Meds Home Medications Medication Instructions Recorded Confirmed Type hydrocodone-acetaminophen [Maysel] 1 tab PO Q4-6H PRN #14 tab 08/01/18 08/08/18 Rx ondansetron HCl [Zofran] 4 mg PO QID PRN #10 tab 08/07/18 08/08/18 Rx duloxetine 60 mg PO BID 08/08/18 08/08/18 History levetiracetam 750 mg PO BID 08/08/18 08/08/18 History quetiapine 400 - 800 mg PO BEDTIME 08/08/18 08/08/18 History Allergies Allergy/AdvReac Type Severity Reaction Status Date / Time diflunisal [DIFLUNISAL] Allergy Unknown Verified 08/08/18 14:01 methocarbamol [From ROBAXIN] Allergy Unknown Verified 08/08/18 14:01 naproxen [From NAPROSYN] Allergy Unknown Verified 08/08/18 14:01 NSAIDS (Non-Steroidal Allergy Unknown Verified 08/08/18 14:01 Anti-Inflamma [NSAIDS (NON-STEROIDAL ANTI-INFLAMMA] Review of Systems Review of Systems Patient has a has a seizure disorder of uncertain cause which began last fall. She has had 1 seizure and none since. She has been on medication. Denies visual problems like double vision she does wear so-called cheater glasses. No earaches trouble swallowing. She has no teeth. Patient had asthma but rarely uses an inhaler if she is doing quite well. No cough or cold. No chest pain or heart disease. No black or bloody bowel movements. No seizures or blackouts. No problems the pancreas. Has had anemia in the past but not recently. No history of kidney stones or blood in her urine. Exam Vital Signs (past 8 hours): - 08/08/18 14:01 08/08/18 18:01 Temperature 97.1 F L Pulse Rate 87 78 Respiratory Rate 15 18 Blood Pressure 130/86 Blood Pressure [Right Arm] 132/86 Pulse Oximetry 99 Oxygen Delivery Method Room Air Narrative Exam Narrative: Operative woman in no apparent distress. She has lost a great deal of weight but even so is not thin. Her facial features are sharp. Her eyes are nonicteric. Conjunctiva look a little pale. Ears without lesion nasal septum midline without polyps. Her oral mucosa is edentulous no open lesions. No splits in her lips. There are no nodes in the neck or supraclavicular areas. Trachea is midline mobile. Thyroid is not enlarged. Lungs are clear to auscultation without rales or rhonchi. Equal percussion. Heart regular rate and rhythm without murmur gallop no heave lift or thrill. Breasts are supported with a brought but appeared to be somewhat pendulous. Her abdomen has an upper midline scar from umbilicus to xiphoid. The abdominal lopez lax. She has scars from skin removal. Difficult to tell she actually has a hernia at this time. There are no masses on examination. Mild tenderness in the right upper abdomen. Patient has tattoos on her legs. 2+ dorsalis pedal pulses. She is alert and oriented x3. Speech rate and content are appropriate. Patient does appear to be a little flat affect it. Conversation is appropriate. Objective Labs Result Diagrams: 08/08/18 15:14 08/08/18 15:14 Labs: Laboratory Results - last 24 hr 08/08/18 08/08/18 08/08/18 15:14 15:14 15:14 WBC 3.3 L RBC 4.07 Hgb 13.0 Hct 37.8 MCV 92.8 MCH 31.9 MCHC 34.4 RDW 18.3 H Plt Count 201 Neut % (Auto) 50.5 Lymph % (Auto) 40.9 H [place] % (Auto) 6.6 Eos % (Auto) 1.5 L Baso % (Auto) 0.5 Neut # (Auto) 1700 L Sodium 143 Potassium 3.8 Chloride 104 Carbon Dioxide 27 BUN 11 Creatinine 0.60 Estimated GFR > 60.0 BUN/Creatinine Ratio 18.3 Glucose 93 Calcium 8.4 Total Bilirubin 0.3 AST 18 ALT 20 Alkaline Phosphatase 82 Total Protein 6.7 Albumin 3.7 Globulin 3.0 Albumin/Globulin Ratio 1.2 Amylase 42 Lipase 15 L Urine Color Urine Appearance Urine pH Ur Specific [place] Urine Protein Urine Glucose (UA) Urine Ketones Urine Occult Blood Urine Nitrate Urine Bilirubin Urine Urobilinogen Ur Leukocyte Esterase Urine RBC Urine WBC Urine Bacteria Ur Culture Indicated? Micro UA Comment 08/08/18 Unknown WBC RBC Hgb Hct MCV MCH MCHC RDW Plt Count Neut % (Auto) Lymph % (Auto) [place] % (Auto) Eos % (Auto) Baso % (Auto) Neut # (Auto) Sodium Potassium Chloride Carbon Dioxide BUN Creatinine Estimated GFR BUN/Creatinine Ratio Glucose Calcium Total Bilirubin AST ALT Alkaline Phosphatase Total Protein Albumin Globulin Albumin/Globulin Ratio Amylase Lipase Urine Color Yellow Urine Appearance Clear Urine pH 7.0 Ur Specific [place] 1.010 Urine Protein Negative Urine Glucose (UA) Negative Urine Ketones Negative Urine Occult Blood Negative Urine Nitrate Negative Urine Bilirubin Negative Urine Urobilinogen 0.2 Ur Leukocyte Esterase Negative Urine RBC None seen Urine WBC None seen Urine Bacteria None seen Ur Culture Indicated? Cult not indicated Micro UA Comment Microscopic normal Assessment & Plan (1) Cholelithiasis and cholecystitis without obstruction: Problem details: Patient appears to have chronic cholecystitis. It is worsening she has had persistent pain for the last week. This is her 2nd visit the ER. Will admit her and perform a laparoscopic cholecystectomy or at least attempt to do so. We will try to avoid her midline scar where there is not only history of hernias but also probable use of mesh. I have discussed the operation with her. Risks of bleeding, infection, hernia, injury to internal organs and ducts which would require major operation to repair, bile leakage discussed. Because of her Geremias-en-Y she probably would not be a candidate for an ERCP should 1 be necessary. We will plan to do a cholangiogram because her duct is 11 mm. She understands that there is a possibility might have to do an open procedure. All questions were answered. We will continue her seizure meds. DVT prophylaxis with enoxaparin ordered. Current visit: Yes Status: Chronic
[2018-08-08] MEDS: LACTATED RINGERS 1,000 ML 100 ML IV (18:51)
[2018-08-08] MEDS: SODIUM CHLORIDE 0.9% FLUSH 10 ML IV (19:00)
--- NOTE | 2018-08-08 19:05 | PC.NURSE ---
Pt admitted to from ER. Transferred via stretcher, ambulated to bed. Reports pain 06/05, called for pain meds. Oriented to room and call light. Pt aware of NPO at midnight. Clear liquid diet until then.
[2018-08-08] MEDS: HYDROMORPHONE 1 MG INJ IV ×2 (19:09→22:21)
[2018-08-08] MEDS: INFLUENZA VACCINE 0.5 ML SYRINGE IM (19:13)
--- NOTE | 2018-08-08 19:34 | PC.NURSE ---
ADMISSION Received pt at approximately 1840 via [employer], accompanied by ED CLOTH WEIGHER. A&Ox3, pleasant and cooperative with care. c/o 8/10 pain to abdominal area, denies any nausea/vomiting, able to tolerate clear liquid diet. pt verbalized understanding at midnight. 1P/SBA for ambulation. oriented to room. call light within reach.
[2018-08-08] MEDS: ENOXAPARIN 40 MG/0.4 ML SYRINGE SUBCUT (20:31)
[2018-08-08] MEDS: levETIRAcetam 250 MG TABLET 750 MG PO (20:31)
[2018-08-08] MEDS: DULOXETINE 30 MG CAPSULE 60 MG PO (20:31)
[2018-08-08] MEDS: QUETIAPINE 200 MG TABLET 800 MG PO (22:21)
[2018-08-09] VITALS (16 sets, daily range): BP systolic 114–147; BP diastolic 70–94; PULSE 65–100; RESP 14–18; TEMP 36.5–37.4; O2SAT 92–98
--- NOTE | 2018-08-09 | PATH_ITS ---
[facility] Accession Number: [id number] . 01 Material submitted: . GALLBLADDER WITH CONTENTS . 02 Diagnosis: Gallbladder, Cholecystectomy: Chronic cholecystitis with cholelithiasis. No evidence of dysplasia or malignancy. MRV/08/12/2018 . 02 Electronically signed: . Екатерина Lanza MD, Pathologist NPI- [id number] . 01 Gross description: . Received in formalin, labeled gallbladder w/contents, is an intact gallbladder (length-8.8 cm, diameter-3.8 cm) with newton-purple smooth shiny serosa and a patent cystic duct. A possible lymph node (0.3 x 0.2 x 0.1 cm) is identified. The lumen contains clear watery tacky bile and multiple round solid firm calculi (4.5 x 3.2 x 1.2 cm in aggregate). The mucosa is carrasquillo-pink with a rough texture. The wall is up to 0.1 cm thick. No nodules, masses or lesions are identified. Section code: (A1) cystic duct resection margin and two serial sections from the body; (A2) two longitudinal sections from the fundus; (A3) one possible lymph node. ([id number]) ([id number]) /MRV . 02 Pathologist provided ICD-10: K80.60 . 02 CPT . 104830 Performed at: 01 [facility] [place] [address] [facility], [place], [place] [id number] MD Sam Katz MD Phone: [phone] Performed at: 02 [facility] [address] [place], [place] [id number] MD Екатерина Lanza MD Phone: [phone]
--- NOTE | 2018-08-09 | DI.RAD.S_ITS ---
PROCEDURE: XR CHOLANGIOGRAM OPERATIVE INDICATIONS: CHOLAGIOGRAM COMPARISON: None. FINDINGS: Biliary ducts: The surgeon injected contrast into the biliary ducts after cannulation of the cystic duct stump. Visualized intra- and extrahepatic bile ducts are dilated, without strictures. No intraluminal filling defects to suggest retained ductal stones or sludge. No evidence for iatrogenic ductal injury. Duodenum: Contrast flows promptly through the sphincter of Oddi into the duodenum, which appears normal in caliber. IMPRESSION: Mild intrahepatic biliary ductal dilatation and mild common bile that dilatation. No intraluminal filling defect to suggest choledocholithiasis. Cystic duct stump is seen. No contrast extravasation. Dictated by: Quentin Clayton M.D. on 08/09/2018 at 18:19 Approved by: Quentin Clayton M.D. on 08/09/2018 at 18:21
[2018-08-09] MEDS: CEFOTETAN 2 GM/50 ML PIGGYBACK IV ×3 (00:05→23:39)
[2018-08-09] MEDS: HYDROMORPHONE 1 MG INJ IV ×7 (03:09→23:33)
--- NOTE | 2018-08-09 04:40 | PC.NURSE ---
Pt is A and O x 4, VSS. C/o epigastric pain 8/10 with adequate relief from 1 mg IVP dilaudid. LS clear, S1, S2, + BTs, voiding clear yellow qs.
[2018-08-09] MEDS: LACTATED RINGERS 1,000 ML 100 ML IV (05:26)
[2018-08-09] MEDS: DULOXETINE 30 MG CAPSULE 60 MG PO ×2 (09:28→21:26)
[2018-08-09] MEDS: levETIRAcetam 250 MG TABLET 750 MG PO ×2 (09:28→21:26)
--- NOTE | 2018-08-09 13:17 | PM.PREOP ---
Pre-operative Note Interval Note Pre-op Check: Yes History & Physical Reviewed by Physician and Yes Exam Performed Changes: No
--- NOTE | 2018-08-09 14:02 | SUR.OPER ---
Supine on padded OR bed, head on pillow, arms secured on padded arm boards at <90 degrees abduction, legs uncrossed, safety belt at thigh, tape over blanket over lower legs.
[2018-08-09] MEDS: IOPAMIDOL 50 ML VIAL INJ (14:06)
[2018-08-09] MEDS: BUPIVACAINE 0.5% (PF) VIAL 30 ML INJ (14:06)
[2018-08-09] MEDS: GLUCAGON,HUMAN RECOMBINANT 1 MG/ML VIAL IV (15:31)
[2018-08-09] MEDS: ACETAMINOPHEN IV 1,000 MG/100 ML VIAL 400 MG IV (16:01)
[2018-08-09] MEDS: LACTATED RINGERS 1,000 ML 42 ML IV (16:06)
--- NOTE | 2018-08-09 17:38 | P.OP_ITS ---
Operative Date/Time/Diagnoses Date of procedure: 08/09/18 Time of procedure: 17:00 Pre-op diagnosis: Cholelithiasis cholecystitis chronic Post-op diagnosis: same (Abnormal common bile duct) Procedure & Clinicians Procedure: Laparoscopic cholecystectomy with intraoperative cholangiogram and attempt at ductal exploration with the basket Same procedure as scheduled: Yes Surgeon: Ty Gonzalez Click Yes if Unassisted: Yes Anesthesia Type: General Operative Notes Findings: Minimally thickened gallbladder wall. Marked dilatation of the common duct and intrahepatic ducts. Intermittent obstructive process at the distal common bile duct. Please see details below. Closure Type: primary Specimen(s): other (gallbladder and stones) Implants & Drains: 7 mm Joselito-Bkaer Estimated Blood Loss (mL): 10 Blood products transfused: none Procedure in detail: The patient was placed supine on the operating room table and underwent general endotracheal anesthesia. There prepped and draped in the usual fashion. Local anesthetic was infiltrated to the right of the umbilicus and an incision made overlying the rectus because of a prior midline procedure which included mesh hernia repair. It was carried down to the level of the peritoneum which was opened under direct vision. Stay sutures of 0 Polysorb were placed in both the anterior and posterior layer of the rectus fascia. An Belén cannula was inserted and the abdomen was insufflated. The patient was repositioned and local anesthetic was infiltrated again beneath the right costal margin and 3 small 5 mm ports were inserted. The gallbladder was identified and grasped and elevated. Dissection was begun near its and. A ductal structure singular nature going directly gallbladder was from surrounding structures. A clip was placed the she flow into the duodenum from a rather dilated common bile duct. Only the distal end was tapered appropriately. The cystic duct was quite long and tortuous which probably explained why I could not advance the catheter very far. I wanted to see if I could increase the flow through the sphincter the patient was given glucagon. Repeat cholangiogram failed to show flow into the duodenum. I attempted to pass a basket into the cystic duct to manipulate any obstruction in the distal common bile duct. After working for some time and various means of manipulating including the addition of another 5 mm port in the subcostal area it became apparent I was not going to be able to manipulate the ducts through this is duct. I repeated the cholangiogram to see if there had been any change and in fact there was now flow into the duodenum again. Rather than open her for what may be a negative exploration of the common bile duct and given the fact that her bilirubin was normal preoperatively I decided to put multiple clips on the cystic duct and drain the patient. If her bilirubin chuy postoperatively she could be sent for a laparoscopic exploration of the common bile duct or for placement of a percutaneous cholecystostomy tube through which her distal duct might be manipulated.. She unfortunately is not a candidate for an ERCP due to her gastric bypass. Four clips were placed on the cystic duct and it was divided leaving these in the patient. Insert doing a clip that had been placed at the cystic duct gallbladder junction came off and spilled stones into the peritoneal cavity. They were all sequestered up in the area of the liver. I was able to suction these out with a wide sucker tip and appeared to remove everything I could see. The gallbladder was then dissected from its bed the liver and detached. It was placed in a bag removed through the mid abdominal port. Drain was placed in the gallbladder fossa and brought out through 1 of the lateral port sites. It was secured with 3 0 nylon. Meticulous hemostasis had been achieved. There was no evidence of a bile leak. The ports were all irrigated. The fascia was closed with 0 Polysorb in 2 0 PDS sutures at the an incision near the umbilicus. The wounds were irrigated and the subcu/skin was closed with with interrupted 4 0 Polysorb subcuticular stitches and Steri- Strips. Dressings were applied and the patient was not extubated after being awakened and was taken to the recovery room good condition. Condition: stable Disposition: PACU
[2018-08-09] MEDS: LACTATED RINGERS 1,000 ML 125 ML IV (17:44)
[2018-08-09] MEDS: SODIUM CHLORIDE 0.9% FLUSH 10 ML IV (17:44)
[2018-08-09] MEDS: ONDANSETRON 4 MG/2 ML INJ IV ×2 (19:31→23:33)
[2018-08-09] MEDS: HYDROCODONE/ACET 5/325 TABLET 2 TAB PO (19:31)
[2018-08-09] MEDS: GABAPENTIN 300 MG CAPSULE PO (21:26)
[2018-08-09] MEDS: QUETIAPINE 200 MG TABLET 800 MG PO (21:26)
--- NOTE | 2018-08-09 21:55 | PC.NURSE ---
POST-OP Received pt at approximately 1730 via bed, accompanied by PLATFORM CONSULTANT. sleepy but arousable to verbal stimuli. R abdomen dressing CDI. MARGIE intact with serosanguinous drainage. pt c/o intermittent nausea without emesis. pt also c/o 7-10/10 pain to abdomen area. pt with no desire to attempt to advance diet past clear liquids. 1PA for BRP. pt currently attempting to rest. call light within reach.
[2018-08-10] MEDS: HYDROMORPHONE 1 MG INJ IV ×4 (02:33→12:38)
[2018-08-10 05:43] VITALS: BP 119/80; PULSE 88; RESP 16; TEMP 36.7; O2SAT 96
[2018-08-10 06:19] LABS: Add Manual Diff / Slide Review NO; Basophils Percent Auto 0.1 % (0-2); Hematocrit 35.7 % (36-46); Hemoglobin 12.4 g/dL (12.0-16.0); Lymphocytes Percent Auto 10.9 % (25-40); Mean Corpuscular HGB Conc 34.8 % (30-36); Mean Corpuscular Hemoglobin 32.3 PG (26-34); Mean Corpuscular Volume 92.8 fL (80-100); Monocytes Percent Auto 8.4 % (3-14); Neutrophils Absolute Auto 6300 /uL (1500-7000); Neutrophils Percent Auto 80.6 % (50-75); Platelet Count 192 X10^3/uL (150-400); Red Blood Cell Count 3.85 X10^6/uL (4.0-5.2); Red Cell Distribution Width 18.4 % (11.6-14.8); White Blood Cell Count 7.8 X10^3/uL (4.5-11.0)
[2018-08-10 06:37] LABS: Alanine Aminotransferase 564 IU/L (9-52); Albumin 3.4 g/dL (3.5-5.0); Albumin Globulin Ratio 1.1 (1.0-2.8); Alkaline Phosphatase 230 U/L (38-126); BUN Creatinine Ratio 11.7 (6-22); Bilirubin Total 1.8 mg/dL (0.2-1.3); Blood Urea Nitrogen 7 mg/dL (7-17); Calcium 8.6 mg/dL (8.4-10.2); Carbon Dioxide 26 mmol/L (22-32); Chloride 99 mmol/L (98-107); Estimated Glomerular Filt Rate > 60.0 mL/min (>60); Glucose 121 mg/dL (70-100); HEMOLYSIS < 15 (0-50); Potassium 4.2 mmol/L (3.4-5.1); Sodium 137 mmol/L (137-145); Total Protein 6.4 g/dL (6.3-8.2)
--- NOTE | 2018-08-10 06:37 | PC.NURSE ---
Pt is A and O x 4, VSS. Had some nausea on evening shift which has resolved and patient able to drink apple juice and eat half a turkey sandwich. + BTs. LS clear, S1, S2. Pt has requested 1 mg Dilaudid IVP x 3 this shift for pain she rates at 7-8/10. Diet advanced to regular to start today with breakfast. Incision site C/D/I. MARGIE = 30 mLs sero sanguineous. Pt voiding clear yellow in BR with only SBA x 1.
[2018-08-10 06:48] LABS: Aspartate Aminotransferase 1046 IU/L (14-36)
[2018-08-10 08:00] VITALS: BP 128/77; PULSE 84; RESP 16; TEMP 37; O2SAT 97
[2018-08-10] MEDS: ENOXAPARIN 40 MG/0.4 ML SYRINGE SUBCUT (09:05)
[2018-08-10] MEDS: DULOXETINE 30 MG CAPSULE 60 MG PO (09:05)
[2018-08-10] MEDS: levETIRAcetam 250 MG TABLET 750 MG PO (09:06)
[2018-08-10] MEDS: GABAPENTIN 300 MG CAPSULE PO (09:07)
[2018-08-10] MEDS: HYDROCODONE/ACET 5/325 TABLET 2 TAB PO ×2 (10:47→14:31)
[2018-08-10] MEDS: LACTATED RINGERS 1,000 ML 100 ML IV (10:49)
--- NOTE | 2018-08-10 12:10 | P.DS_ITS ---
History of Present Illness Date Patient Seen: 08/10/18 Time Patient Seen: 12:02 Chief complaint: CONTINUED ABDOMINAL PAIN Narrative: 48-year-old female with complicated medical and surgical history who presented emergency department several times within the last week complaining of significant right upper quadrant abdominal pain. Examination and evaluation were consistent with cholelithiasis and dilated common bile duct. However, all liver function tests including total bilirubin were normal. Because of her intractable pain she was admitted and scheduled for urgent laparoscopic cholecystectomy as well as intraoperative cholangiography. Discharge Providers Date of admission: 08/08/18 17:49 Consults: 08/09/18 17:30 Consult to Discharge Planning Routine Comment: Discharge provider: Demetrio Miranda MD Discharge Date: 08/10/18 Summary Discharge Diagnosis: Gallstones (Acute) Migraines (Acute) Obesity (Acute) History of seizure disorder History of abdominoplasty (Acute) Status post gastric bypass for obesity (Acute) History of left shoulder replacement (Acute) Status post repair of incisional hernias with mesh Laparoscopic cholecystectomy with intraoperative cholangiography August 09, 2018 Common bile duct dilatation but no evidence of choledocholithiasis Elevated liver function tests status post cholecystectomy, not unanticipated following surgery Hospital Course: Patient was admitted and taken to the operating room for the above procedures which she tolerated well. She did have common bile duct dilatation but no evidence of obvious choledocholithiasis or other lesions. There was drainage of contrast into the duodenum. She was returned to the regular surgical floor postoperatively with Joselito-Baker drain in place. Overnight she did well with no fevers or other abnormalities. No nausea or vomiting. She is tolerating her usual baseline gastric bypass regular diet on postoperative day 1. She has had spontaneous return of bowel bladder function. She is comfortable with drain care, especially since she has had Joselito- Baker drains after abdominal plasty in the past. Drain output is serosanguineous only with total volume of approximately 50 cc overnight. No bile in the drain. She is doing well with oral analgesia, and she is actually pleasantly surprised that the minimal amount of pain she is experiencing following the procedure. She is ambulating without difficulty. Her postoperative liver function tests are mildly elevated, but this is not unanticipated following the operation. Bilirubin is now 1.8, but there was spillage of bile during the procedure. We will follow this as an outpatient. Her laboratory studies will be repeated at the time of her follow-up later this week. However, she understands to call or return sooner if she has any issues with fever, chills, inability to tolerate a diet, progressive pain, change in drain output, or any other concerns. All questions were answered to her satisfaction, and she voiced understanding. Status at Discharge Cognitive/behavioral status at discharge: Alert, oriented x3 Functional status at discharge: independent ambulation Overall status at discharge: patient is progressing back to baseline Time Spent with Patient Less than 30 minutes Exam Vital Signs (past 8 hours): - 08/10/18 05:43 08/10/18 08:00 Temperature 98.0 F 98.6 F Pulse Rate 88 84 Respiratory Rate 16 16 Blood Pressure 119/80 128/77 Pulse Oximetry 96 97 Oxygen Delivery Method Room Air Oxygen Flow Rate 0 Narrative Exam Narrative: Well-nourished well-developed female in no acute distress. Alert oriented x3. She is in good spirits. No fever since surgery. No tachycardia. Blood pressure is normal. Adequate urine output Drain output is as above and is serosanguineous only today. No bile. No pus. Chest clear auscultation bilaterally with regular rate and rhythm. No murmurs, gallops, rubs Abdomen is soft and nondistended. Dressings are clean, dry, and intact. She is appropriately tender to palpation but certainly with no guarding or rebound. Extremities show no clubbing or cyanosis Objective Labs Result Diagrams: 08/10/18 05:46 08/10/18 05:46 Labs: Laboratory Results - last 24 hr 08/10/18 08/10/18 05:46 05:46 WBC 7.8 D RBC 3.85 L Hgb 12.4 Hct 35.7 L MCV 92.8 MCH 32.3 MCHC 34.8 RDW 18.4 H Plt Count 192 Neut % (Auto) 80.6 H D Lymph % (Auto) 10.9 L D [place] % (Auto) 8.4 Eos % (Auto) 0.0 L Baso % (Auto) 0.1 Neut # (Auto) 6300 Sodium 137 Potassium 4.2 Chloride 99 Carbon Dioxide 26 BUN 7 Creatinine 0.60 Estimated GFR > 60.0 BUN/Creatinine Ratio 11.7 Glucose 121 H Calcium 8.6 Total Bilirubin 1.8 H AST 1046 H ALT 564 H Alkaline Phosphatase 230 H D Total Protein 6.4 Albumin 3.4 L Globulin 3.0 Albumin/Globulin Ratio 1.1 Discharge Plan Discharge Plan Patient Disposition: Home Discharge comment: Repeat laboratory studies have been ordered prior to your appointment in surgery Clinic next week. Please have those drawn at the laboratory approximately 45 min prior to appointment time. Discharge Med Rec/Prescriptions Prescriptions: New hydrocodone-acetaminophen 5-325 mg Tablet 2 tab PO Q6HR PRN (Reason: Pain, Severe (7-10)) Qty: 30 RF: 0 gabapentin [Neurontin] 300 mg Capsule 300 mg PO BID Qty: 30 RF: 0 Continue ondansetron HCl [Zofran] 4 mg tablet 4 mg PO QID PRN (Reason: nausea and vomiting) Qty: 10 RF: 0 levetiracetam 750 mg tablet 750 mg PO BID RF: 0 quetiapine 400 mg tablet 400 - 800 mg PO BEDTIME RF: 0 duloxetine 60 mg capsule,delayed release(DR/EC) 60 mg PO BID RF: 0 Discontinued hydrocodone-acetaminophen [Mamou] 5-325 mg tablet 1 tab PO Q4-6H PRN (Reason: pain) Qty: 14 RF: 0 Follow up/Referrals: Ty Gonzalez MD [Physician] - 08/14/18 12:00 am (Please call office for exact appointment time) Provider Discharge Instructions Diet: Diet as Tolerated Diet comment: May follow usual home diet as dictated by previous gastric bypass Activity: May walk as much as desired May climb stairs May ride in vehicle No driving while taking opioid pain medication No lifting more than 20 lb for 2 weeks Cold/Heat Therapy: May apply ice pack to incisions as needed for comfort Other treatments: Empty and record drain output at least once daily as instructed Skin/Wound/Dressing Care Report to your healthcare provider any signs of infection, such as:: chills, fever, night sweats, increased pain, unusual drainage and unusual redness Other wound treatment: May shower beginning August 11, 2018 Do not soak incisions in bathtub or pool until further notice Discharge Data Attending Provider: Ty Gonzalez Admit Date/Time: 08/08/18 17:49 Quality VTE Deep Vein Thrombosis/Pulmonary Embolism Present on Admission: No
[2018-08-10 12:35] VITALS: BP 116/63; PULSE 88; RESP 14; TEMP 36.9; O2SAT 94
[2018-08-10] MEDS: CEFOTETAN 2 GM/50 ML PIGGYBACK IV (12:40)
--- NOTE | 2018-08-10 15:49 | CM.DANOTE ---
Addendum entered by Richelle Shukla LPN 08/10/18 15:53: Dr. Miranda saw pt this afternoon and deemed her stable for d/c home today. Conferred with ROWAN Pickett and then met with pt. Introduced self and role. Pt was up independently in her room, gathering items and getting dressed in prep for home. She stated I sure feel alot better today. She said her mother was coming to pick her up about 1630. Expressed no concerns re her d/c home today. Original Note: Discharge Planning/Care Management DCP: assessment: case received yesterday and discussed in Team Rounds. Pt was scheduled to go to surgery: Lap jacinda/IOC. complex history including gastric bypass surgery. Pt is a 48 year old female who admitted to care of [facility]: Dr. Gonzalez. Payer: Medicare and Medicaid. Decision made to see pt after surgery CM Discharge Assessment Start: 08/10/18 15:36 Freq: Status: Active Protocol: Document 08/10/18 15:37 ITV (Rec: 08/10/18 15:49 ITV [id number]) Discharge Planning Assessment Advance Directives? No History Provided By Patient Medical Record Prior Living Arrangements Apartment/Condo Household Members significant other children Independent with ADL's Yes Is patient alert and oriented? Yes Review Status In Process Next Review Type Continued Stay Review
--- NOTE | 2018-08-10 16:21 | PC.NURSE ---
DISCHARGE A&Ox3. R abdomen dressing CDI. per pt report, had told her to keep it in place until tomorrow when she showers. MARGIE intact with minimal amount of serosanguinous drainage noted, pt reports having had multiple MARGIE drains during a previous surgery and no questions on how to manage/care for at home. reports pain at tolerable level. denies N/V. independent with ADLs. d/c instructions reviewed with pt. IV removed. pt d/c off unit at approximately 1620 via wheelchair with CHEMICAL TESTER escort.
== END 2018-08-10 16:20 | disposition home or self-care (01) | DRG 413 ==
LOC: ED 17:17 → AC 17:50
PROVIDERS: Admitting Provider Specialist; Emergency Provider Emergency Medicine; Visit Provider Specialist
PROC: 0FT44ZZ Resection of Gallbladder, Percutaneous Endoscopic Approach (ICD-10-PCS; CPT 47562; principal; 2018-08-09 12:45)
DX: K80.10 Calculus of gallbladder with chronic cholecystitis without obstruction (principal); G40.909 Epilepsy, unspecified, not intractable, without status epilepticus; Z98.84 Bariatric surgery status; G43.909 Migraine, unspecified, not intractable, without status migrainosus
CPT/HCPCS: 36415; 47563; 74300; 76705; 80053; 81001; 82150; 82962; 83690; 85025; 88304; 90471; 90656; 96374; 99222; 99282; 99284; J0131; J1100; J1170; J1610; J1650; J2250; J2270; J2405; J2704; J3010; Q2038

== ENCOUNTER → 2018-08-14 09:25 | Outpatient (CLI) | payer MEDICARE, MEDICAID, SELFPAY ==
[2018-08-12 11:01] VITALS: BMI 32.0
[2018-08-14 10:53] LABS: Add Manual Diff / Slide Review NO; Basophils Percent Auto 0.5 % (0-2); Hematocrit 37.8 % (36-46); Hemoglobin 12.8 g/dL (12.0-16.0); Lymphocytes Percent Auto 24.8 % (25-40); Mean Corpuscular HGB Conc 33.9 % (30-36); Mean Corpuscular Hemoglobin 31.8 PG (26-34); Mean Corpuscular Volume 93.8 fL (80-100); Monocytes Percent Auto 8.1 % (3-14); Neutrophils Absolute Auto 3400 /uL (1500-7000); Neutrophils Percent Auto 64.6 % (50-75); Platelet Count 247 X10^3/uL (150-400); Red Blood Cell Count 4.03 X10^6/uL (4.0-5.2); Red Cell Distribution Width 17.9 % (11.6-14.8); White Blood Cell Count 5.3 X10^3/uL (4.5-11.0)
[2018-08-14 11:05] LABS: Alanine Aminotransferase 100 IU/L (9-52); Albumin 3.9 g/dL (3.5-5.0); Albumin Globulin Ratio 1.2 (1.0-2.8); Alkaline Phosphatase 171 U/L (38-126); Aspartate Aminotransferase 35 IU/L (14-36); BUN Creatinine Ratio 11.7 (6-22); Bilirubin Total 0.4 mg/dL (0.2-1.3); Blood Urea Nitrogen 7 mg/dL (7-17); Calcium 8.8 mg/dL (8.4-10.2); Carbon Dioxide 27 mmol/L (22-32); Chloride 104 mmol/L (98-107); Estimated Glomerular Filt Rate > 60.0 mL/min (>60); Globulin 3.3 g/dL (1.7-4.1); Glucose 100 mg/dL (70-100); HEMOLYSIS < 15 (0-50); Lipase 19 U/L (23-300); Potassium 3.5 mmol/L (3.4-5.1); Sodium 146 mmol/L (137-145); Total Protein 7.2 g/dL (6.3-8.2)
== END ==
PROVIDERS: PCP Family Medicine; Visit Provider Surgery
DX: K80.10 Calculus of gallbladder with chronic cholecystitis without obstruction (principal)
CPT/HCPCS: 36415; 80053; 83690; 85025

== ENCOUNTER 2018-08-16 15:07 | Emergency (ER) | payer MEDICARE, SELFPAY ==
[2018-08-12 11:01] VITALS: BMI 32.0
[2018-08-16 15:11] VITALS: BP 143/97; PULSE 88; RESP 18; TEMP 36.1; O2SAT 98; BMI 29.7
--- NOTE | 2018-08-16 16:20 | ED_ITS ---
HPI - Abdominal Pain <Jenna Douglas, [employer] [employer] - Last Filed: 08/16/18 19:49> General Chief Complaint: Abdominal Pain Stated Complaint: Surgery past Sunday, in extreme pain Time Seen by Provider: 08/16/18 16:08 Source: patient Mode of arrival: ambulatory Limitations: no limitations History of Present Illness HPI narrative: Patient is a 48-year-old female who had a laparoscopic cholecystectomy by Dr. Gonzalez on 08/09/2018. She comes in today with right- sided abdominal pain. She states that she ran out of the pain medication that she received on 08/14/2018. She denies nausea vomiting or diarrhea. She states her last bowel movement was today. She states she had follow-up with Dr. Gonzalez on 08/14 and her drain was removed. She states her primary reason for being here is increased pain. She denies dysuria urgency or frequency. She denies fever. Related Data Home Medications Medication Instructions Recorded Confirmed duloxetine 60 mg PO BID 08/08/18 08/16/18 levetiracetam 750 mg PO BID 08/08/18 08/16/18 quetiapine 400 - 800 mg PO BEDTIME 08/08/18 08/16/18 hydrocodone-acetaminophen 2 tab PO Q6H PRN 08/16/18 08/16/18 Previous Rx's Medication Instructions Recorded ondansetron HCl [Zofran] 4 mg PO QID PRN #10 tab 08/07/18 gabapentin [Neurontin] 300 mg PO BID #30 cap 08/10/18 hydrocodone-acetaminophen 2 tab PO Q4-6H PRN #12 tab 08/16/18 gabapentin 400 mg PO BID #20 cap 08/17/18 oxycodone See Label Instructions .ROUTE 08/17/18 .COMPLEX PRN #30 tab oxycodone See Label Instructions .ROUTE 08/17/18 .COMPLEX PRN #30 tab Allergies Allergy/AdvReac Type Severity Reaction Status Date / Time diflunisal [DIFLUNISAL] Allergy Unknown Verified 08/16/18 15:15 methocarbamol [From ROBAXIN] Allergy Unknown Verified 08/16/18 15:15 naproxen [From NAPROSYN] Allergy Unknown Verified 08/16/18 15:15 NSAIDS (Non-Steroidal Allergy Unknown Verified 08/16/18 15:15 Anti-Inflamma [NSAIDS (NON-STEROIDAL ANTI-INFLAMMA] Review of Systems <Jenna Douglas [facility] - Last Filed: 08/16/18 19:49> Review of Systems GENERAL: Denies chills, fatigue, malaise, fever, sweats. HEENT: Denies sinus pain, ear pain, sore throat, difficulty swallowing, dizziness. RESPIRATORY: Denies dyspnea, cough, wheezing, hemoptysis, sputum. CARDIOVASCULAR: Denies chest pain, palpitations, orthopnea, edema, GASTROINTESTINAL: See HPI : Denies dysuria, frequency, incontinence, hematuria, urinary retention. MUSCULOSKELETAL: denies weakness, joint pain, or bony pain SKIN: See HPI NEUROLOGIC: Denies weakness, headache, numbness, change in speech, confusion, seizures, incoordination. PSYCHIATRIC: No concerning psychosocial issues. 12 point review of systems is negative except for those stated above Exam <Jenna Douglas [facility] - Last Filed: 08/16/18 19:49> Narrative Exam Narrative: GENERAL: This is a well-nourished, well-developed patient, in no acute distress HEAD: Atraumatic. Normocephalic. No temporal or scalp tenderness. EYES: Pupils equal round and reactive. Extraocular motions intact. No scleral icterus. No injection or drainage. ENT: Nose without bleeding, purulent drainage or septal hematoma. Throat without erythema, tonsillar hypertrophy or exudate. Uvula midline. Airway patent. NECK: Trachea midline. No JVD or lymphadenopathy. Supple, nontender, no meningeal signs. CARDIOVASCULAR: Regular rate and rhythm without murmurs, gallops, or rubs. RESPIRATORY: Clear to auscultation. Breath sounds equal bilaterally. No wheezes , rales, or rhonchi. No cough or increased respiratory effort. GASTROINTESTINAL: Abdomen soft, nondistended. No hepato-splenomegaly, or palpable masses. No guarding. Active bowel sounds all 4 quadrants. Diffuse tenderness to palpation right side. EXTREMITIES: No clubbing, cyanosis, or edema. No joint tenderness, effusion, or edema noted. BACK: Nontender without deformity or crepitance. No flank tenderness. NEURO: AOx3. SKIN: Multiple surgical incisions on abdomen clean dry intact. No surrounding erythema. No drainage or exudate noted. Initial Vital Signs Initial Vital Signs: Vital Signs Temperature 97.0 F L 08/16/18 15:11 Pulse Rate 88 08/16/18 15:11 Respiratory Rate 18 08/16/18 15:11 Blood Pressure 143/97 H 08/16/18 15:11 Pulse Oximetry 98 08/16/18 15:11 <Jenna Moss DO - Last Filed: 08/18/18 21:06> Initial Vital Signs Initial Vital Signs: Vital Signs Temperature 97.0 F L 08/16/18 15:11 Pulse Rate 88 08/16/18 15:11 Respiratory Rate 18 08/16/18 15:11 Blood Pressure 143/97 H 08/16/18 15:11 Pulse Oximetry 98 08/16/18 15:11 Course <DONTE Marlow - Last Filed: 08/16/18 19:49> Orders Ordered: Discontinued Medications Hydrocodone Bitart/Acetaminophen ([place] 5/325) 2 tab PO NOW ONE Stop: 08/16/18 16:32 Last Admin: 08/16/18 16:38 Dose: 2 tab Vital Signs - 8 hr 08/16/18 15:11 08/16/18 17:31 Temperature 97.0 F L Pulse Rate 88 74 Respiratory Rate 18 18 Blood Pressure 143/97 H Blood Pressure [Left Arm] 148/89 H Pulse Oximetry 98 98 <Jenna Moss DO - Last Filed: 08/18/18 21:06> Orders Ordered: Discontinued Medications Hydrocodone Bitart/Acetaminophen ([place] 5/325) 2 tab PO NOW ONE Stop: 08/16/18 16:32 Last Admin: 08/16/18 16:38 Dose: 2 tab Vital Signs - 8 hr 08/16/18 15:11 08/16/18 17:31 Temperature 97.0 F L Pulse Rate 88 74 Respiratory Rate 18 18 Blood Pressure 143/97 H Blood Pressure [Left Arm] 148/89 H Pulse Oximetry 98 98 MDM - Abdominal Pain <DONTE Marlow - Last Filed: 08/16/18 19:49> Lab Data Result diagrams: 08/16/18 15:25 08/16/18 15:25 Lab Results 08/16/18 08/16/18 Range/Units 15:25 15:25 WBC 4.2 L (4.5-11.0) X10^3/uL RBC 4.09 (4.0-5.2) X10^6/uL Hgb 13.3 (12.0-16.0) g/dL Hct 38.2 (36-46) % MCV 93.4 (80-100) fL MCH 32.4 (26-34) PG MCHC 34.7 (30-36) % RDW 17.6 H (11.6-14.8) % Plt Count 294 (150-400) X10^3/uL Neut % (Auto) 59.4 (50-75) % Lymph % (Auto) 32.7 (25-40) % [place] % (Auto) 6.6 (3-14) % Eos % (Auto) 0.9 L (2-4) % Baso % (Auto) 0.4 (0-2) % Neut # (Auto) 2500 (0024-4996) /uL Sodium 144 (137-145) mmol/L Potassium 3.8 (3.4-5.1) mmol/L Chloride 104 (98-107) mmol/L Carbon Dioxide 29 (22-32) mmol/L BUN 9 (7-17) mg/dL Creatinine 0.60 (0.52-1.04) mg/dL Estimated GFR > 60.0 (>60) mL/min BUN/Creatinine Ratio 15.0 (6-22) Glucose 105 H (70-100) mg/dL Calcium 9.0 (8.4-10.2) mg/dL Total Bilirubin 0.4 (0.2-1.3) mg/dL AST 30 (14-36) IU/L ALT 58 H (9-52) IU/L Alkaline Phosphatase 170 H (38-126) U/L Total Protein 7.7 (6.3-8.2) g/dL Albumin 3.9 (3.5-5.0) g/dL Globulin 3.8 (1.7-4.1) g/dL Albumin/Globulin Ratio 1.0 (1.0-2.8) Lipase 18 L (23-300) U/L Point of care testing: Point of Care Testing Test Results Negative Urine Dip Bedside Urine Glucose Negative Bedside Urine Bilirubin - Negative Bedside Urine Ketone - Negative Urine Specific [place] 1.015 Bedside Urine Occult Blood - Negative Bedside Urine pH 7.5 Bedside Urine Protein - Negative Bedside Urine Urobilinogen - Negative Bedside Urine Nitrite - Negative Bedside Urine Leukocytes - Negative Esterase MDM Narrative Medical decision making narrative: Patient presents with chief complaint of abdominal pain since her surgery. She states that she ran out of pain medication prescribed by her surgeon today. Given her increase in pain, we did basic labs. She does not have an elevated CBC, she does not have an acute abdominal exam and is hemodynamically stable and afebrile. I discussed with her the possibility of imaging, but she declined any further workup beyond lab work today. She declined imaging today. She was treated in the emergency department with hydrocodone for pain, which she stated helped her very much. I did give her a small prescription of hydrocodone with acetaminophen and instructed her to follow up with her surgeon. I discussed return precautions to the emergency department including fever and inability keep down fluids. Patient has no questions or concerns. <Jenna Moss, - Last Filed: 08/18/18 21:06> Lab Data Lab Results 08/16/18 08/16/18 Range/Units 15:25 15:25 WBC 4.2 L (4.5-11.0) X10^3/uL RBC 4.09 (4.0-5.2) X10^6/uL Hgb 13.3 (12.0-16.0) g/dL Hct 38.2 (36-46) % MCV 93.4 (80-100) fL MCH 32.4 (26-34) PG MCHC 34.7 (30-36) % RDW 17.6 H (11.6-14.8) % Plt Count 294 (150-400) X10^3/uL Neut % (Auto) 59.4 (50-75) % Lymph % (Auto) 32.7 (25-40) % [place] % (Auto) 6.6 (3-14) % Eos % (Auto) 0.9 L (2-4) % Baso % (Auto) 0.4 (0-2) % Neut # (Auto) 2500 (6093-5736) /uL Sodium 144 (137-145) mmol/L Potassium 3.8 (3.4-5.1) mmol/L Chloride 104 (98-107) mmol/L Carbon Dioxide 29 (22-32) mmol/L BUN 9 (7-17) mg/dL Creatinine 0.60 (0.52-1.04) mg/dL Estimated GFR > 60.0 (>60) mL/min BUN/Creatinine Ratio 15.0 (6-22) Glucose 105 H (70-100) mg/dL Calcium 9.0 (8.4-10.2) mg/dL Total Bilirubin 0.4 (0.2-1.3) mg/dL AST 30 (14-36) IU/L ALT 58 H (9-52) IU/L Alkaline Phosphatase 170 H (38-126) U/L Total Protein 7.7 (6.3-8.2) g/dL Albumin 3.9 (3.5-5.0) g/dL Globulin 3.8 (1.7-4.1) g/dL Albumin/Globulin Ratio 1.0 (1.0-2.8) Lipase 18 L (23-300) U/L Point of care testing: Point of Care Testing Test Results Negative Urine Dip Bedside Urine Glucose Negative Bedside Urine Bilirubin - Negative Bedside Urine Ketone - Negative Urine Specific [place] 1.015 Bedside Urine Occult Blood - Negative Bedside Urine pH 7.5 Bedside Urine Protein - Negative Bedside Urine Urobilinogen - Negative Bedside Urine Nitrite - Negative Bedside Urine Leukocytes - Negative Esterase Discharge Plan Departure Patient Disposition: Home Clinical Impression: Abdominal pain, Postoperative abdominal pain Discharge Date/Time: 08/16/18 17:55 Interventions: ED Discharge Assessment Last Done: 08/16/18 17:54 Instructions: DI for Abdominal Pain-Adult Activity Restrictions/Additional Instructions: Your lab work came back largely normal today. Please follow-up with primary care provider as well as her surgeon. Please monitor for fever, inability to pass a bowel movement, acute concerns. Please follow-up with your surgeon. Prescriptions: New hydrocodone-acetaminophen 5-325 mg tablet 2 tab PO Q4-6H PRN (Reason: pain) Qty: 12 RF: 0 gabapentin 400 mg capsule 400 mg PO BID Qty: 20 RF: 0 oxycodone 5 mg tablet See Label Instructions .ROUTE .COMPLEX PRN (Reason: pain) Qty: 30 RF: 0 oxycodone 5 mg tablet See Label Instructions .ROUTE .COMPLEX PRN (Reason: painful procedure) Qty: 30 RF: 0 No Action ondansetron HCl [Zofran] 4 mg tablet 4 mg PO QID PRN (Reason: nausea and vomiting) Qty: 10 RF: 0 levetiracetam 750 mg tablet 750 mg PO BID RF: 0 quetiapine 400 mg tablet 400 - 800 mg PO BEDTIME RF: 0 duloxetine 60 mg capsule,delayed release(DR/EC) 60 mg PO BID RF: 0 gabapentin [Neurontin] 300 mg Capsule 300 mg PO BID Qty: 30 RF: 0 hydrocodone-acetaminophen 5-325 mg Tablet 2 tab PO Q6H PRN (Reason: pain) RF: 0 Referrals: Jorge Paredes MD [Primary Care Provider] - <Jenna Moss DO - Last Filed: 08/18/18 21:06> Cosign ED Attending Cosignature Attestation: I was immediately available in the department for consultation. This documentation has been reviewed and I agree with assessment and plan. Supervised by Jenna Moss DO
[2018-08-16 16:21] LABS: Add Manual Diff / Slide Review NO; Basophils Percent Auto 0.4 % (0-2); Eosinophils Percent Auto 0.9 % (2-4); Hematocrit 38.2 % (36-46); Hemoglobin 13.3 g/dL (12.0-16.0); Lymphocytes Percent Auto 32.7 % (25-40); Mean Corpuscular HGB Conc 34.7 % (30-36); Mean Corpuscular Hemoglobin 32.4 PG (26-34); Mean Corpuscular Volume 93.4 fL (80-100); Monocytes Percent Auto 6.6 % (3-14); Neutrophils Absolute Auto 2500 /uL (1500-7000); Neutrophils Percent Auto 59.4 % (50-75); Platelet Count 294 X10^3/uL (150-400); Red Blood Cell Count 4.09 X10^6/uL (4.0-5.2); Red Cell Distribution Width 17.6 % (11.6-14.8); White Blood Cell Count 4.2 X10^3/uL (4.5-11.0)
[2018-08-16 16:26] LABS: Alanine Aminotransferase 58 IU/L (9-52); Albumin 3.9 g/dL (3.5-5.0); Alkaline Phosphatase 170 U/L (38-126); Aspartate Aminotransferase 30 IU/L (14-36); Bilirubin Total 0.4 mg/dL (0.2-1.3); Blood Urea Nitrogen 9 mg/dL (7-17); Carbon Dioxide 29 mmol/L (22-32); Chloride 104 mmol/L (98-107); Estimated Glomerular Filt Rate > 60.0 mL/min (>60); Globulin 3.8 g/dL (1.7-4.1); Glucose 105 mg/dL (70-100); HEMOLYSIS 17 (0-50); Lipase 18 U/L (23-300); Potassium 3.8 mmol/L (3.4-5.1); Sodium 144 mmol/L (137-145); Total Protein 7.7 g/dL (6.3-8.2)
[2018-08-16] MEDS: HYDROCODONE/ACET 5/325 TABLET 2 TAB PO (16:38)
[2018-08-16 17:31] VITALS: BP 148/89; PULSE 74; RESP 18; O2SAT 98
--- NOTE | 2018-08-23 19:45 | PM.PN.1 ---
Subjective Date Patient Seen: 08/23/18 Time Patient Seen: 19:45 Interval history: Patient call through the answering service this evening. In fact, she has called me approximately 4 times within the last 45 min to 60 min while I was in the operating room completing a case. I have returned her call. She is complaining of diffuse abdominal ?burning? pain. She does not particularly localize it. She relates no other symptoms. In fact, she is rather vague about her symptomatology. She does not state that she is having any issues with wound drainage, fever, chills, nausea, vomiting, or food intolerance. No jaundice or acholic stools. She reports normal bowel and bladder function. She has repeatedly and immediately requested on multiple occasions throughout the conversation a prescription for pain medication. Obviously, I am unable to examine her over the phone. She was last seen by Dr. Gonzalez around August 14 2018. Her surgery was exactly 14 days ago now. She had an apparent uncomplicated laparoscopic cholecystectomy with cholangiogram. There was some question of potential retained stone but her follow-up liver function tests in the office after discharge from the hospital were completely unremarkable with a normal bilirubin. Patient has denied jaundice as above. She simply repeatedly tells me that she cannot tolerate her current symptoms as described above and will not elaborate any further. Again, she is insistent that the only resolution is narcotic pain medication. She recently received a refill of her medication from Dr. Gonzalez. She repeatedly requests that I write her prescription and leave it at the registration desk in the [facility] Emergency Department for her to obtain without further evaluation. Nevertheless, I have strongly recommended that she be seen in the emergency department for re-evaluation and potential repeat of her laboratory studies. She refused immediately. Throughout our conversation I reiterated this recommendation strongly several times. She continues to refuse and states that ?she simply just cannot do that.? At this hour on a Sunday night I am unable to provide her with any type of evaluation in the office and potential subsequent prescription if needed. I explained this to her in detail. She voiced understanding. She became quite frustrated with me under these circumstances since I simply would not refill her prescription for pain medication. I informed her that I am happy to do so, if indicated, based on further evaluation through the emergency department which is our only option at this time. Once again despite my recommendations she refused to be seen and evaluated appropriately and terminated our conversation abruptly. Of note, she does have an appointment to see Dr. Gonzalez for routine postoperative follow-up next week. I encouraged her to keep that appointment during our conversation. Exam Vital Signs (past 8 hours): Oxygen Delivery Method Room Air Oxygen Flow Rate 0 Objective Labs Result Diagrams: 08/16/18 15:25 08/16/18 15:25
== END 2018-08-16 17:55 | disposition home or self-care (01) ==
PROVIDERS: Emergency Provider Nurse Practitioner Family; PCP Family Medicine
DX: R10.9 Unspecified abdominal pain (principal); G89.18 Other acute postprocedural pain
CPT/HCPCS: 36591; 80053; 81003; 81025; 83690; 85025; 99283

== ENCOUNTER 2018-08-25 00:04 | Emergency (ER) | payer MEDICARE, SELFPAY ==
[2018-08-12 11:01] VITALS: BMI 32.0
[2018-08-25 00:11] VITALS: BP 140/87; PULSE 112; RESP 18; TEMP 37.2; O2SAT 98
--- NOTE | 2018-08-25 00:39 | PC.NURSE ---
Pt does not have thoughts of harming self or others. Pt states I just need ativan and clonidine to get to rehab tomorrow. Provider notified. Pt speech is fast and rambling. Her sentences run together and it is difficult to track her thoughts. Provider notified and went directly to pt room.
[2018-08-25] MEDS: diphenhydrAMINE 25 MG TABLET 50 MG PO (00:55)
[2018-08-25] MEDS: cloNIDine TTS 0.2 MG PATCH TOP (01:01)
[2018-08-25 01:07] VITALS: BP 119/77; PULSE 90; RESP 20; O2SAT 96
--- NOTE | 2018-08-25 07:03 | ED_ITS ---
HPI - Anxiety General Chief Complaint: Anxiety Stated Complaint: did street drugs need clonidine Time Seen by Provider: 08/25/18 00:08 Source: patient and family Mode of arrival: ambulatory Limitations: no limitations History of Present Illness HPI narrative: 48-year-old female, former smoker presents with a chief complaint of anxiety and insomnia. She states that she is beginning to go through opioid withdrawal and needs the medications to help prevent it from becoming serious. She states that she is set up to go to a detox facility tomorrow afternoon. She denies any symptoms such as chest pain or shortness of breath. She has no nausea or vomiting. She denies any diaphoresis or abdominal. She has a long history of opioid abuse and had been free of abuse with the help of methadone and then Suboxone up until a recent gallbladder surgery for which she was discharged on Vicodin. Additionally she states that she smoked a bit of crack cocaine to try to help with her symptoms. She denies chest pain or shortness of breath. She had a family member call head earlier to verify that we had the ability to treat MD complaint: anxiety Onset (ago): hour(s) Severity: mild Quality: constant Place: home History of similar episodes: Yes Provoking factors: none known Exacerbating factors: nothing Associated symptoms: denies other symptoms Related Data Home Medications Medication Instructions Recorded Confirmed duloxetine 60 mg PO BID 08/08/18 08/16/18 levetiracetam 750 mg PO BID 08/08/18 08/16/18 quetiapine 400 - 800 mg PO BEDTIME 08/08/18 08/16/18 hydrocodone-acetaminophen 2 tab PO Q6H PRN 08/16/18 08/16/18 Previous Rx's Medication Instructions Recorded ondansetron HCl [Zofran] 4 mg PO QID PRN #10 tab 08/07/18 gabapentin [Neurontin] 300 mg PO BID #30 cap 08/10/18 hydrocodone-acetaminophen 2 tab PO Q4-6H PRN #12 tab 08/16/18 gabapentin 400 mg PO BID #20 cap 08/17/18 oxycodone See Label Instructions .ROUTE 08/17/18 .COMPLEX PRN #30 tab oxycodone See Label Instructions .ROUTE 08/17/18 .COMPLEX PRN #30 tab Allergies Allergy/AdvReac Type Severity Reaction Status Date / Time diflunisal [DIFLUNISAL] Allergy Unknown Verified 08/16/18 15:15 methocarbamol [From ROBAXIN] Allergy Unknown Verified 08/16/18 15:15 naproxen [From NAPROSYN] Allergy Unknown Verified 08/16/18 15:15 NSAIDS (Non-Steroidal Allergy Unknown Verified 08/16/18 15:15 Anti-Inflamma [NSAIDS (NON-STEROIDAL ANTI-INFLAMMA] Review of Systems Review of Systems All systems reviewed & are unremarkable except as noted in HPI and below Constitutional Denies chills, Denies fever(s), Denies lethargy and Denies weakness Eyes Denies change in vision, Denies eye discharge, Denies irritation and Denies loss of vision ENT Ears, Nose, Mouth, and Throat: Denies change in voice, Denies neck pain and Denies sore throat Cardiovascular Denies chest pain, Denies irregular heart rhythm, Denies lightheadedness, Denies palpitations, Denies dyspnea, Denies dyspnea on exertion and Denies orthopnea Respiratory Denies cough, Denies dyspnea, Denies dyspnea on exertion and Denies wheezing Gastrointestinal Gastrointestinal: Denies abdominal pain, Denies change in bowel habits, Denies diarrhea, Denies nausea and Denies vomiting Genitourinary Denies hematuria, Denies flank pain, Denies urinary incontinence and Denies urinary urgency Musculoskeletal Denies neck pain Integumentary/Breasts Denies pruritus, Denies erythema, Denies rash and Denies wounds Neurologic Denies confusion, Denies loss of vision and Denies weakness Psychiatric Denies anxiety, Denies confusion, Denies depression, Denies homicidal ideation and Denies suicidal ideation Endocrine Denies palpitations Hematologic/Lymphatic Denies easy bruising Allergic/Immunologic Denies wheezing [facility] Medical History Gallstones (Acute) Migraines (Acute) Obesity (Chronic) Anxiety (Acute) Depression (Acute) Surgical History History of abdominoplasty (Resolved) Status post gastric bypass for obesity (Acute) H/O hernia repair (Acute) History of endometrial ablation (Acute) History of left shoulder replacement (Acute) Family History Mother Cardiac dysrhythmia Social History marital status: unmarried,living together household members: significant other and children occupational status: unemployed Smoking Status: Never smoker alcohol intake: never substance use type: does not use Exam Narrative Exam Narrative: GENERAL: This is a well-nourished, well-developed patient, in mild distress. HEAD: Atraumatic. Normocephalic. No temporal or scalp tenderness. EYES: Pupils equal round and reactive. Extraocular motions intact. No scleral icterus. No injection or drainage. ENT: Nose without bleeding, purulent drainage or septal hematoma. Throat without erythema, tonsillar hypertrophy or exudate. Uvula midline. Airway patent. NECK: Trachea midline. No JVD or lymphadenopathy. Supple, nontender, no meningeal signs. CARDIOVASCULAR: Regular rate and rhythm without murmurs, gallops, or rubs. RESPIRATORY: Clear to auscultation. Breath sounds equal bilaterally. No wheezes , rales, or rhonchi. GASTROINTESTINAL: Abdomen soft, non-tender, nondistended. No hepato-splenomegaly , or palpable masses. No guarding. EXTREMITIES: No clubbing, cyanosis, or edema. No joint tenderness, effusion, or edema noted. BACK: Nontender without deformity or crepitance. No flank tenderness. NEURO: AOx3. SKIN: No rash or erythema. Initial Vital Signs Initial Vital Signs: Vital Signs Temperature 98.9 F 08/25/18 00:11 Pulse Rate 112 H 08/25/18 00:11 Respiratory Rate 18 08/25/18 00:11 Blood Pressure 140/87 08/25/18 00:11 Pulse Oximetry 98 08/25/18 00:11 Course Orders Ordered: Discontinued Medications Clonidine HCl (Catapres-Tts) 0.2 mg TOP NOW ONE Stop: 08/25/18 00:49 Last Admin: 08/25/18 01:01 Dose: 0.2 mg Diphenhydramine HCl (Benadryl) 50 mg PO NOW ONE Stop: 08/25/18 00:49 Last Admin: 08/25/18 00:55 Dose: 50 mg Vital Signs - 8 hr 08/25/18 00:11 08/25/18 01:07 Temperature 98.9 F Pulse Rate 112 H 90 Respiratory Rate 18 20 Blood Pressure 140/87 119/77 Pulse Oximetry 98 96 Discharge Plan Departure Patient Disposition: Home Clinical Impression: Opioid dependence with withdrawal Discharge Date/Time: 08/25/18 01:09 Interventions: ED Discharge Assessment Last Done: 08/25/18 01:07 Instructions: DI for Opioid Addiction Activity Restrictions/Additional Instructions: *You have been diagnosed with [ opioid withdrawal *What to do: *Take medications as directed *Follow up with your primary care provider in 2-3 days, call for an appointment. Let them know you were seen in the Emergency Department and that we ask that you be seen in follow up *Return to ER if you should have any new, worsening or concerning symptoms Prescriptions: No Action ondansetron HCl [Zofran] 4 mg tablet 4 mg PO QID PRN (Reason: nausea and vomiting) Qty: 10 RF: 0 levetiracetam 750 mg tablet 750 mg PO BID RF: 0 quetiapine 400 mg tablet 400 - 800 mg PO BEDTIME RF: 0 duloxetine 60 mg capsule,delayed release(DR/EC) 60 mg PO BID RF: 0 gabapentin [Neurontin] 300 mg Capsule 300 mg PO BID Qty: 30 RF: 0 hydrocodone-acetaminophen 5-325 mg Tablet 2 tab PO Q6H PRN (Reason: pain) RF: 0 hydrocodone-acetaminophen 5-325 mg tablet 2 tab PO Q4-6H PRN (Reason: pain) Qty: 12 RF: 0 gabapentin 400 mg capsule 400 mg PO BID Qty: 20 RF: 0 oxycodone 5 mg tablet See Label Instructions .ROUTE .COMPLEX PRN (Reason: pain) Qty: 30 RF: 0 oxycodone 5 mg tablet See Label Instructions .ROUTE .COMPLEX PRN (Reason: painful procedure) Qty: 30 RF: 0
== END 2018-08-25 01:09 | disposition home or self-care (01) ==
PROVIDERS: Emergency Provider Emergency Medicine; PCP Family Medicine
DX: F11.23 Opioid dependence with withdrawal (principal)
CPT/HCPCS: 99282; 99283